=== PATIENT | male | born 1945 | race Caucasian/White ===

== ENCOUNTER → 2016-02-20 | Outpatient (CLI) | payer MEDICARE, OTHER ==
[2016-02-21 04:37] LABS: HEPATITIS C VIRUS AB <0.1 s/co ratio (0.0-0.9)
== END ==
LOC: OD 10:56
PROVIDERS: ATTEND Internal Medicine
DX: Z11.59 Encounter for screening for other viral diseases (principal)
CPT/HCPCS: 36415; 86704; 86705; 86706; 86707; 86803; 87340; 87350

== ENCOUNTER → 2016-03-15 | Outpatient (CLI) | payer MEDICARE, OTHER ==
[2016-03-15 12:10] LABS: HEMATOCRIT 39.8 % (37.9-51.0); HEMOGLOBIN 13.6 g/dL (13.5-17.0); MEAN CORPUSCULAR HEMOGLOBIN 29.7 pg (27.0-33.4); MEAN CORPUSCULAR HGB CONC 34.2 g/dL (32.0-36.0); MEAN CORPUSCULAR VOLUME 87 fl (80-97); RED BLOOD COUNT 4.58 10^6/uL (4.35-5.55); RED CELL DISTRIBUTION WIDTH 13.1 % (11.5-14.0); WHITE BLOOD COUNT 8.2 10^3/uL (4.0-10.5)
== END ==
LOC: OD 11:03
PROVIDERS: ATTEND Physician Assistant
DX: R53.83 Other fatigue (principal)
CPT/HCPCS: 36415; 85027

== ENCOUNTER → 2016-05-03 | Outpatient (CLI) | payer MEDICARE, OTHER ==
[2016-05-03 10:43] LABS: APPEARANCE,URINE CLEAR; BILIRUBIN,URINE NEGATIVE (NEGATIVE); GLUCOSE, URINE NEGATIVE (NEGATIVE); KETONES,URINE NEGATIVE (NEGATIVE); LEUKOCYTE ESTERASE,URINE NEGATIVE (NEGATIVE); NITRITE,URINE NEGATIVE (NEGATIVE); PROTEIN,URINE NEGATIVE (NEGATIVE); URINE SPECIFIC GRAVITY 1.003; UROBILINOGEN,URINE NEGATIVE mg/dL (<2.0)
[2016-05-03 10:47] LABS: HEMATOCRIT 41.2 % (37.9-51.0); HGB HCT DIFFERENCE 0.8; MEAN CORPUSCULAR HEMOGLOBIN 30.1 pg (27.0-33.4); MEAN CORPUSCULAR VOLUME 89 fl (80-97); RED BLOOD COUNT 4.66 10^6/uL (4.35-5.55); RED CELL DISTRIBUTION WIDTH 14.5 % (11.5-14.0); WHITE BLOOD COUNT 10.7 10^3/uL (4.0-10.5)
[2016-05-03 11:08] LABS: ANION GAP 13 (5-19); BLOOD UREA NITROGEN 17 mg/dL (7-20); CALCIUM 8.9 mg/dL (8.4-10.2); CARBON DIOXIDE 23 mmol/L (22-30); CHLORIDE 103 mmol/L (98-107); CREATININE RESULT 1.31 mg/dL (0.52-1.25); GLUCOSE 152 mg/dL (75-110); MAGNESIUM 1.8 mg/dL (1.6-2.3); POTASSIUM 4.6 mmol/L (3.6-5.0); SODIUM 138.5 mmol/L (137-145)
== END ==
LOC: OD 08:51
PROVIDERS: ATTEND Internal Medicine Nephrology
DX: I12.9 Hypertensive chronic kidney disease with stage 1 through stage 4 chronic kidney disease, or unspecified chronic kidney disease (principal); N18.3 Chronic kidney disease, stage 3 (moderate); E11.9 Type 2 diabetes mellitus without complications; E83.42 Hypomagnesemia
CPT/HCPCS: 36415; 80048; 81001; 83735; 85027

== ENCOUNTER → 2016-07-20 | Outpatient (CLI) | payer MEDICARE, OTHER ==
[2016-07-20 09:15] LABS: HEMOGLOBIN 13.2 g/dL (13.5-17.0); HGB HCT DIFFERENCE 0.6; MEAN CORPUSCULAR HEMOGLOBIN 29.7 pg (27.0-33.4); MEAN CORPUSCULAR HGB CONC 33.8 g/dL (32.0-36.0); MEAN CORPUSCULAR VOLUME 88 fl (80-97); RED BLOOD COUNT 4.45 10^6/uL (4.35-5.55); RED CELL DISTRIBUTION WIDTH 13.1 % (11.5-14.0); WHITE BLOOD COUNT 7.5 10^3/uL (4.0-10.5)
== END ==
LOC: OD 08:33
PROVIDERS: ATTEND Physician Assistant
DX: E29.1 Testicular hypofunction (principal); D40.0 Neoplasm of uncertain behavior of prostate; R53.83 Other fatigue
CPT/HCPCS: 36415; 84153; 84403; 85027

== ENCOUNTER → 2016-11-15 | Outpatient (CLI) | payer MEDICARE, OTHER ==
[2016-11-15 09:57] LABS: HEMATOCRIT 40.5 % (37.9-51.0); HEMOGLOBIN 13.7 g/dL (13.5-17.0); HGB HCT DIFFERENCE 0.6; MEAN CORPUSCULAR HEMOGLOBIN 29.6 pg (27.0-33.4); MEAN CORPUSCULAR HGB CONC 33.7 g/dL (32.0-36.0); MEAN CORPUSCULAR VOLUME 88 fl (80-97); RED BLOOD COUNT 4.61 10^6/uL (4.35-5.55); RED CELL DISTRIBUTION WIDTH 13.3 % (11.5-14.0); WHITE BLOOD COUNT 8.6 10^3/uL (4.0-10.5)
== END ==
LOC: OD 08:34
PROVIDERS: ATTEND Internal Medicine Nephrology
DX: E29.1 Testicular hypofunction (principal); D40.0 Neoplasm of uncertain behavior of prostate; R53.83 Other fatigue
CPT/HCPCS: 36415; 84153; 84403; 85027

== ENCOUNTER → 2016-11-29 | Outpatient (CLI) | payer MEDICARE, OTHER ==
[2016-11-29 09:06] LABS: HEMATOCRIT 39.6 % (37.9-51.0); HEMOGLOBIN 13.7 g/dL (13.5-17.0); HGB HCT DIFFERENCE 1.5; MEAN CORPUSCULAR HGB CONC 34.6 g/dL (32.0-36.0); MEAN CORPUSCULAR VOLUME 87 fl (80-97); RED BLOOD COUNT 4.57 10^6/uL (4.35-5.55); RED CELL DISTRIBUTION WIDTH 13.5 % (11.5-14.0); WHITE BLOOD COUNT 8.4 10^3/uL (4.0-10.5)
[2016-11-29 09:09] LABS: APPEARANCE,URINE SLIGHTLY-CLOUDY; BILIRUBIN,URINE NEGATIVE (NEGATIVE); GLUCOSE, URINE NEGATIVE (NEGATIVE); KETONES,URINE NEGATIVE (NEGATIVE); LEUKOCYTE ESTERASE,URINE SMALL (NEGATIVE); NITRITE,URINE NEGATIVE (NEGATIVE); PROTEIN,URINE NEGATIVE (NEGATIVE); URINE SPECIFIC GRAVITY 1.006; UROBILINOGEN,URINE NEGATIVE mg/dL (<2.0)
[2016-11-29 09:21] LABS: ANION GAP 12 (5-19); BLOOD UREA NITROGEN 18 mg/dL (7-20); CALCIUM 9.1 mg/dL (8.4-10.2); CARBON DIOXIDE 23 mmol/L (22-30); CHLORIDE 105 mmol/L (98-107); CREATININE RESULT 1.54 mg/dL (0.52-1.25); GLUCOSE 175 mg/dL (75-110); POTASSIUM 4.4 mmol/L (3.6-5.0); SODIUM 140.2 mmol/L (137-145)
[2016-11-30 12:38] LABS: CREATININE URINE 97.7 mg/dL (Not Estab.); MICROALBUMIN URINE 12.4 ug/mL (Not Estab.)
== END ==
LOC: OD 08:11
PROVIDERS: ATTEND Internal Medicine Nephrology
DX: N18.3 Chronic kidney disease, stage 3 (moderate) (principal); E11.9 Type 2 diabetes mellitus without complications; E83.42 Hypomagnesemia; E87.5 Hyperkalemia
CPT/HCPCS: 36415; 80048; 81001; 82043; 82570; 85027

== ENCOUNTER → 2017-01-03 | Outpatient (CLI) | payer MEDICARE, OTHER ==
[2017-01-03 10:20] LABS: ANION GAP 12 (5-19); BLOOD UREA NITROGEN 18 mg/dL (7-20); CALCIUM 8.9 mg/dL (8.4-10.2); CARBON DIOXIDE 26 mmol/L (22-30); CHLORIDE 105 mmol/L (98-107); GLUCOSE 119 mg/dL (75-110); MAGNESIUM 1.8 mg/dL (1.6-2.3); POTASSIUM 4.1 mmol/L (3.6-5.0); SODIUM 142.8 mmol/L (137-145)
== END ==
LOC: OD 08:25
PROVIDERS: ATTEND Internal Medicine Nephrology
DX: E11.22 Type 2 diabetes mellitus with diabetic chronic kidney disease (principal); I12.9 Hypertensive chronic kidney disease with stage 1 through stage 4 chronic kidney disease, or unspecified chronic kidney disease; N18.3 Chronic kidney disease, stage 3 (moderate); E83.42 Hypomagnesemia; E87.5 Hyperkalemia
CPT/HCPCS: 36415; 80048; 83735

== ENCOUNTER → 2017-03-14 | Outpatient (CLI) | payer MEDICARE, OTHER ==
[2017-03-14 08:51] LABS: HEMATOCRIT 42.4 % (37.9-51.0); HEMOGLOBIN 14.6 g/dL (13.5-17.0); MEAN CORPUSCULAR HEMOGLOBIN 29.7 pg (27.0-33.4); MEAN CORPUSCULAR HGB CONC 34.4 g/dL (32.0-36.0); MEAN CORPUSCULAR VOLUME 86 fl (80-97); PLATELET COUNT 185 10^3/uL (150-450); RED BLOOD COUNT 4.91 10^6/uL (4.35-5.55); RED CELL DISTRIBUTION WIDTH 13.6 % (11.5-14.0); WHITE BLOOD COUNT 8.6 10^3/uL (4.0-10.5)
== END ==
LOC: OD 07:52
PROVIDERS: ATTEND Physician Assistant
DX: D40.0 Neoplasm of uncertain behavior of prostate (principal); E29.1 Testicular hypofunction; R53.83 Other fatigue
CPT/HCPCS: 36415; 84153; 84403; 85027

== ENCOUNTER → 2017-04-04 | Outpatient (CLI) | payer MEDICARE, OTHER ==
[2017-04-04 08:40] LABS: HEMATOCRIT 38.7 % (37.9-51.0); MEAN CORPUSCULAR HEMOGLOBIN 29.1 pg (27.0-33.4); MEAN CORPUSCULAR HGB CONC 33.6 g/dL (32.0-36.0); MEAN CORPUSCULAR VOLUME 87 fl (80-97); PLATELET COUNT 186 10^3/uL (150-450); RED BLOOD COUNT 4.46 10^6/uL (4.35-5.55); RED CELL DISTRIBUTION WIDTH 14.2 % (11.5-14.0); WHITE BLOOD COUNT 11.8 10^3/uL (4.0-10.5)
[2017-04-04 09:00] LABS: ANION GAP 15 (5-19); BLOOD UREA NITROGEN 20 mg/dL (7-20); CALCIUM 9.3 mg/dL (8.4-10.2); CARBON DIOXIDE 21 mmol/L (22-30); CHLORIDE 101 mmol/L (98-107); GLUCOSE 236 mg/dL (75-110); POTASSIUM 5.3 mmol/L (3.6-5.0); SODIUM 136.8 mmol/L (137-145)
== END ==
LOC: OD 07:53
PROVIDERS: ATTEND Internal Medicine Nephrology
DX: I12.9 Hypertensive chronic kidney disease with stage 1 through stage 4 chronic kidney disease, or unspecified chronic kidney disease (principal); N18.3 Chronic kidney disease, stage 3 (moderate); E11.9 Type 2 diabetes mellitus without complications; R60.9 Edema, unspecified
CPT/HCPCS: 36415; 80048; 83735; 85027

== ENCOUNTER → 2017-07-18 | Outpatient (CLI) | payer MEDICARE, OTHER ==
[2017-07-18 08:38] LABS: MEAN CORPUSCULAR HEMOGLOBIN 29.9 pg (27.0-33.4); MEAN CORPUSCULAR HGB CONC 34.2 g/dL (32.0-36.0); MEAN CORPUSCULAR VOLUME 87 fl (80-97); PLATELET COUNT 177 10^3/uL (150-450); RED BLOOD COUNT 4.69 10^6/uL (4.35-5.55); RED CELL DISTRIBUTION WIDTH 13.4 % (11.5-14.0); WHITE BLOOD COUNT 7.7 10^3/uL (4.0-10.5)
== END ==
LOC: OD 07:31
PROVIDERS: ATTEND Physician Assistant
DX: E29.1 Testicular hypofunction (principal); D40.0 Neoplasm of uncertain behavior of prostate; R53.83 Other fatigue
CPT/HCPCS: 36415; 84153; 84403; 85027

== ENCOUNTER → 2017-10-11 | Outpatient (CLI) | payer MEDICARE, OTHER ==
[2017-10-11 08:18] LABS: HEMATOCRIT 40.6 % (37.9-51.0); HEMOGLOBIN 13.9 g/dL (13.5-17.0); MEAN CORPUSCULAR HEMOGLOBIN 29.6 pg (27.0-33.4); MEAN CORPUSCULAR HGB CONC 34.2 g/dL (32.0-36.0); MEAN CORPUSCULAR VOLUME 87 fl (80-97); PLATELET COUNT 158 10^3/uL (150-450); RED BLOOD COUNT 4.69 10^6/uL (4.35-5.55); RED CELL DISTRIBUTION WIDTH 14.1 % (11.5-14.0); WHITE BLOOD COUNT 7.6 10^3/uL (4.0-10.5)
[2017-10-11 08:22] LABS: APPEARANCE,URINE CLEAR; BILIRUBIN,URINE NEGATIVE (NEGATIVE); COLOR,URINE STRAW; GLUCOSE, URINE NEGATIVE (NEGATIVE); KETONES,URINE NEGATIVE (NEGATIVE); LEUKOCYTE ESTERASE,URINE NEGATIVE (NEGATIVE); NITRITE,URINE NEGATIVE (NEGATIVE); PROTEIN,URINE NEGATIVE (NEGATIVE); URINE SPECIFIC GRAVITY 1.004; UROBILINOGEN,URINE NEGATIVE mg/dL (<2.0)
[2017-10-11 08:54] LABS: ANION GAP 11 (5-19); BLOOD UREA NITROGEN 21 mg/dL (7-20); CALCIUM 9.2 mg/dL (8.4-10.2); CARBON DIOXIDE 25 mmol/L (22-30); CHLORIDE 105 mmol/L (98-107); GLUCOSE 213 mg/dL (75-110); POTASSIUM 4.5 mmol/L (3.6-5.0); SODIUM 140.6 mmol/L (137-145)
== END ==
LOC: OD 07:42
PROVIDERS: ATTEND Internal Medicine Nephrology
DX: N18.3 Chronic kidney disease, stage 3 (moderate) (principal); E83.42 Hypomagnesemia; E87.5 Hyperkalemia; E11.22 Type 2 diabetes mellitus with diabetic chronic kidney disease
CPT/HCPCS: 36415; 80048; 81001; 85027

== ENCOUNTER 2017-10-13 11:06 | Observation (INO) | payer MEDICARE, OTHER ==
[2017-10-13] MEDS ORDERED: ASPIRIN 81 MG TABLET, CHEWABLE PO ONE (12:25)
--- NOTE | 2017-10-13 12:43 | EKG REPORT ---
SEVERITY:- NORMAL ECG - SINUS RHYTHM : Confirmed by: Ryan Ansari MD 13-Oct-2017 12:43:08
[2017-10-13 13:17] LABS: ABSOLUTE EOSINOPHILS # (AUTO) 0.2 10^3/uL (0.0-0.6); ABSOLUTE LYMPHOCYTES (AUTO) 1.4 10^3/uL (0.5-4.7); ABSOLUTE MONOCYTES (AUTO) 0.7 10^3/uL (0.1-1.4); ABSOLUTE NEUT (AUTO) 7.7 10^3/uL (1.7-8.2); BASOPHILS % (AUTO) 0.3 % (0-2); EOSINOPHILS % (AUTO) 1.7 % (0-6); HEMOGLOBIN 14.6 g/dL (13.5-17.0); MEAN CORPUSCULAR HEMOGLOBIN 29.6 pg (27.0-33.4); MEAN CORPUSCULAR VOLUME 87 fl (80-97); MONOCYTES % (AUTO) 6.8 % (3-13); PLATELET COUNT 185 10^3/uL (150-450); RED BLOOD COUNT 4.93 10^6/uL (4.35-5.55); SEGMENTED NEUTROPHILS % (AUTO) 77.2 % (42-78); TOTAL CELLS COUNTED % (AUTO) 100 %; WHITE BLOOD COUNT 9.9 10^3/uL (4.0-10.5)
--- NOTE | 2017-10-13 13:19 | RADIOLOGY REPORT (SQ) ---
EXAM DESCRIPTION: CHEST SINGLE VIEW COMPLETED DATE/TIME: 10/13/2017 12:57 pm REASON FOR STUDY: cp COMPARISON: 01/06/2016 EXAM PARAMETERS: NUMBER OF VIEWS: One view. TECHNIQUE: Single frontal radiographic view of the chest acquired. RADIATION DOSE: NA LIMITATIONS: None. FINDINGS: LUNGS AND PLEURA: Mild hyperexpansion of the lungs. No infiltrate or effusion. No mass. MEDIASTINUM AND HILAR STRUCTURES: No masses. Contour normal. HEART AND VASCULAR STRUCTURES: Heart normal in size. Normal vasculature. BONES: No acute findings. HARDWARE: None in the chest. OTHER: No other significant finding. IMPRESSION: Mild chronic lung changes with no acute cardiopulmonary disease. TECHNICAL DOCUMENTATION: JOB ID: [id number] [employer]- All Rights Reserved Reading location - IP/workstation name: [email or web address]
[2017-10-13 13:48] LABS: ALANINE AMINOTRANSFERASE 26 U/L (21-72); ALBUMIN 4.5 g/dL (3.5-5.0); ALKALINE PHOSPHATASE 83 U/L (38-126); ANION GAP 9 (5-19); ASPARTATE AMINO TRANSFERASE 24 U/L (17-59); BILIRUBIN,DIRECT 0.3 mg/dL (0.0-0.4); BILIRUBIN,TOTAL 0.7 mg/dL (0.2-1.3); BLOOD UREA NITROGEN 14 mg/dL (7-20); CALCIUM 9.8 mg/dL (8.4-10.2); CARBON DIOXIDE 26 mmol/L (22-30); CHLORIDE 105 mmol/L (98-107); CREATINE KINASE 62 U/L (55-170); GLUCOSE 131 mg/dL (75-110); POTASSIUM 4.6 mmol/L (3.6-5.0); SODIUM 140.1 mmol/L (137-145); TOTAL PROTEIN 7.8 g/dL (6.3-8.2)
--- NOTE | 2017-10-13 13:51 | ER Document Report ---
ED Cardiac - General Chief Complaint: Breathing Difficulty Stated Complaint: CHEST PRESSURE, SHORTNESS OF BREATH Time Seen by Provider: 10/13/17 12:41 Information source: Patient Notes: Patient is a 72-year-old male with past medical history of being prediabetic, high cholesterol, low thyroid, osteoarthritis, and chronic kidney disease on Lasix who presents today stating that yesterday while attempting to walk he had some shortness of breath and chest discomfort. He states he only has the shortness of breath and discomfort with ambulating. He denies a history of this prior to yesterday. Patient denies any runny nose, congestion, fevers, calf pain or leg swelling above baseline. No recent trips or travel. TRAVEL OUTSIDE OF THE [place] IN LAST 30 DAYS: No - HPI Patient complains to provider of: Other - See above Chest pain location: Substernal Quality of pain: Other - See above Chest pain radiation location: None Severity now: None Severity at worst: Mild Pain level currently: Denies Chest pain precipitating factors: Physical Exertion Associated symptoms: Other - See above Exacerbated by: Denies Relieved by: Nothing Similar symptoms previously: No Recently seen / treated by doctor: No - Related Data Allergies/Adverse Reactions: atorvastatin calcium [From Lipitor] Allergy (Verified 10/13/17 11:08) cephradine [From Velosef] Allergy (Verified 10/13/17 11:08) cerivastatin sodium [From Baycol] Allergy (Verified 10/13/17 11:08) chloramphenicol [From Chloromycetin] Allergy (Verified 10/13/17 11:08) chloramphenicol sod succ [From Chloromycetin] Allergy (Verified 10/13/17 11:08) cholera vaccine [Cholera Vaccine] Allergy (Verified 10/13/17 11:08) colestipol HCl [From Colestid] Allergy (Verified 10/13/17 11:08) doxycycline hyclate [From Vibramycin] Allergy (Verified 10/13/17 11:08) erythromycin base [Erythromycin Base] Allergy (Verified 10/13/17 11:08) ezetimibe [From Zetia] Allergy (Verified 10/13/17 11:08) fenofibrate,micronized [From Tricor] Allergy (Verified 10/13/17 11:08) lisinopril [Lisinopril] Allergy (Verified 10/13/17 11:08) nifedipine [From Adalat] Allergy (Verified 10/13/17 11:08) Penicillins Allergy (Verified 10/13/17 11:08) simvastatin [From Zocor] Allergy (Verified 10/13/17 11:08) sulfamethoxazole [From Septra] Allergy (Verified 10/13/17 11:08) terazosin [Terazosin] Allergy (Verified 10/13/17 11:08) trimethoprim [From Septra] Allergy (Verified 10/13/17 11:08) contrast IVP Dye Allergy (Uncoded 10/13/17 11:08) Past Medical History - General Information source: Patient - Social History Smoking Status: Former Smoker Cigarette use (# per day): No Chew tobacco use (# tins/day): No Smoking Education Provided: No Frequency of alcohol use: None Drug Abuse: None Family History: Reviewed & Not Pertinent Patient has suicidal ideation: No Patient has homicidal ideation: No - Past Medical History Cardiac Medical History: Reports: Hx Hypercholesterolemia, Hx Hypertension Denies: Hx Coronary Artery Disease, Hx Pulmonary Embolism Endocrine Medical History: Reports: Hx Diabetes Mellitus Type 2, Hx Hypothyroidism Renal/ Medical History: Denies: Hx Peritoneal Dialysis GI Medical History: Reports: Hx Gastroesophageal Reflux Disease Musculoskeletal Medical History: Reports Hx Arthritis Psychiatric Medical History: Denies: Hx Depression Past Surgical History: Reports: Hx Genitourinary Surgery - bladder reconstruction - Immunizations Hx Pneumococcal Vaccination: 02/08/08 Review of Systems - Review of Systems Constitutional: denies: Fever EENT: denies: Eye discharge, Nose discharge Respiratory: Short of breath. denies: Cough, Hurts to breathe, Hemoptysis, Wheezing Gastrointestinal: denies: Vomiting Genitourinary: denies: Dysuria Musculoskeletal: denies: Leg swelling Skin: Other - no hives. denies: Rash Neurological/Psychological: Other - no slurred speech -: Yes All other systems reviewed and negative Physical Exam - Vital signs Vitals: Temp Pulse Resp BP Pulse Ox 97.6 F 68 20 184/75 H 96 10/13/17 11:13 10/13/17 11:13 10/13/17 11:13 10/13/17 11:13 10/13/17 11:13 Notes: Reviewed vital signs and nursing note as charted by RN. CONSTITUTIONAL: Alert and oriented and responds appropriately to questions. Well -appearing; well-nourished HEAD: Normocephalic; atraumatic CARD: Regular rate and rhythm; no murmurs; symmetric distal pulses RESP: Normal chest excursion without splinting or tachypnea; breath sounds clear and equal bilaterally ABD/GI: Normal bowel sounds; non-distended; soft, non-tender BACK: The back appears normal and is non-tender to palpation, there is no CVA tenderness EXT: Normal ROM in all joints; non-tender to palpation, patient has 1+ bilateral pitting edema to the shins no calf pain or leg swelling noted SKIN: Normal color for age and race; warm; dry; no acute lesions noted NEURO: Moves all extremities equally; Motor and sensory function intact PSYCH: The patient's mood and manner are appropriate. Grooming and personal hygiene are appropriate. Course - Re-evaluation Re-evalutation: Given the above history and physical examination, I currently have a very low pretest probability for pulmonary embolism and aortic dissection. 10/13/17 13:50 EKG shows heart of 70, normal sinus rhythm, normal axis, no ST elevation or depression. Labs and initial troponin as recorded. Patient denies any pain at this time. X-ray of the chest shows minimal cardiomegaly with no obvious infiltrates or pleural effusions. Patient is still chest pain-free. Given the above history and physical I will have a repeat 3 hour troponin to decide whether the patient can be kept here or transferred for further cardiac evaluation. Aspirin has been already provided upon arrival. 10/13/17 16:32 Second set of cardiac enzymes has been drawn. Derek Amaya MD is currently out of town. Dr. Porras is covering for him. He states when Derek Amaya MD is out of town he would like the hospitalist to admit. 10/13/17 17:09 Patient still has no chest pain. Repeat troponin is essentially unchanged. I called and spoke directly to the ground wood supervisor Dr. Gayle. I have explained the full history and physical as well as the troponin levels. He is happy to consult on this patient with possible stress test tomorrow. Patient will be admitted to the hospitalist. - Vital Signs Vital signs: Temp Pulse Resp BP Pulse Ox 97.6 F 68 12 168/90 H 95 10/13/17 11:13 10/13/17 11:13 10/13/17 16:01 10/13/17 16:00 10/13/17 16:01 - Laboratory Result Diagrams: 10/13/17 12:57 10/13/17 12:57 Laboratory results interpreted by me: 10/13/17 12:57 Creatinine 1.45 H Est GFR ( Amer) 58 L Est GFR (Non-Af Amer) 48 L Glucose 131 H Discharge - Discharge Clinical Impression: Chest pain Qualifiers: Chest pain type: unspecified Qualified Code(s): R07.9 - Chest pain, unspecified Condition: Fair Disposition: ADMITTED OBSERVATION Admitting Provider: Hospitalist Unit Admitted: Telemetry Referrals: DEREK AMAYA MD [Primary Care Provider] - Follow up as needed
[2017-10-13 13:59] LABS: CREATINE KINASE MB 1.49 ng/mL (<4.55)
[2017-10-13 14:08] LABS: TROPONIN I 0.12 ng/mL
[2017-10-13] MEDS ORDERED: ACETAMINOPHEN 325 MG TABLET PO PRN (17:22)
[2017-10-13] MEDS ORDERED: ONDANSETRON 4 MG TAB.RAPDIS PO PRN (17:22)
[2017-10-13] MEDS ORDERED: DEXTROSE 40% GEL 15 GM TUBE PO PRN ×2 (17:22)
[2017-10-13] MEDS ORDERED: PROMETHAZINE HCL INJ 25 MG/1 ML VIAL IV PRN (17:22)
[2017-10-13] MEDS ORDERED: ZOLPIDEM TARTRATE 5 MG TABLET PO PRN (17:22)
[2017-10-13] MEDS ORDERED: MAG HYDROX/AL HYDROX/SIMETH SUSP 30 ML UDCUP PO PRN (17:22)
[2017-10-13] MEDS ORDERED: DEXTROSE 50%-WATER 25 GM/50 ML DISP.SYRIN IV PRN ×2 (17:22)
[2017-10-13] MEDS ORDERED: MAGNESIUM HYDROXIDE SUSP 30 ML UDCUP PO PRN (17:22)
[2017-10-13] MEDS ORDERED: GLUCAGON,HUMAN RECOMB 1 MG INJ SUBCUT PRN (17:22)
[2017-10-13] MEDS: DOCUSATE SODIUM 100 MG CAPSULE PO SCH (18:29)
[2017-10-13] MEDS ORDERED: ALPROSTADIL 20 MCG IM PRN (19:49)
[2017-10-13] MEDS ORDERED: KETOCONAZOLE 2% SHAMPOO 120 ML BOTTLE TOP PRN (19:49)
[2017-10-13] MEDS ORDERED: METHOCARBAMOL 500 MG TABLET PO PRN (19:49)
[2017-10-13] MEDS ORDERED: CARBOXYMETHYLCELLULOSE SODIUM OU PRN (19:49)
[2017-10-13] MEDS ORDERED: (PENDING PHARMACY ID) (Diclofenac Sodium [Voltaren] 4 GM) TP PRN (19:49)
--- NOTE | 2017-10-13 19:49 | PDOC H&P ---
History of Present Illness Admission Date/PCP: 10/13/17 17:10 DEREK AMAYA MD Patient complains of: Chest pain History of Present Illness: MUNIR SUMMERS is a 72 year old male who presented to the emergency room with a history of chest pain beginning on the afternoon of the day prior to his admission. He states that he was walking from [facility] to his car which was parked a fair distance away when he developed severe dyspnea, profuse diaphoresis, and a severe, crushing pressure type, anterior, substernal, chest pain without radiation. The pain was constant for a couple of minutes and and then subsided over approximately 10-15 minutes with rest. He developed a similar episode on the morning of admission when he had taken out some trash from the house to the curb. This episode again involved severe dyspnea and severe chest pressure but less prominent diaphoresis. The pain was again nonradiating. He denies prior episodes and has identified rest is not ameliorating factor and exertion as a exacerbating factor for his pain. He denies any recent nausea, vomiting or diarrhea and has had no fever or chills. He additionally denies palpitations, cough, sputum production, hemoptysis, rash and syncope. His past medical history is positive for hyperlipidemia, hypertension, hypothyroidism, osteoarthritis, chronic renal failure and prediabetes. He is being admitted for cardiology evaluation. Dr. Gayle has been consulted. Past Medical History Cardiac Medical History: Reports: Hyperlipidema, Hypertension Denies: Atrial Fibrillation, Congestive Heart Failure, Coronary Artery Disease, DVT, Myocardial Infarction, Peripheral Vascular Disease, Pulmonary Embolism, Heart Murmur Pulmonary Medical History: Reports: None EENT Medical History: Reports: None Neurological Medical History: Reports: None Endocrine Medical History: Reports: Diabetes Mellitus Type 2 - Prediabetes, Hypothyroidism Renal/ Medical History: Reports: Chronic Kidney Disease Malignancy Medical History: Reports: None GI Medical History: Reports: Gastroesophageal Reflux Disease Musculoskeltal Medical History: Reports: Arthritis - Osteoarthritis Skin Medical History: Reports: None Psychiatric Medical History: Reports: None Traumatic Medical History: Reports: None Hematology: Reports: None Infectious Medical History: Reports: None Past Surgical History Past Surgical History: Reports: None Social History Smoking Status: Former Smoker Frequency of Alcohol Use: None Hx Recreational Drug Use: No Hx Prescription Drug Abuse: No Family History Family History: Reviewed & Not Pertinent Parental Family History Reviewed: Yes Children Family History Reviewed: No Sibling(s) Family History Reviewed.: Yes Medication/Allergy Home Medications: Alfuzosin HCl [Uroxatral SR 10 mg Tablet] 1 tab.sr PO DAILY 12/01/12 Aspirin [Aspirin 325 mg Tablet] 325 mg PO DAILY 12/01/12 Atenolol [Tenormin 50 mg Tablet] 50 mg PO DAILY 12/01/12 Carboxymethylcellulose Sodium [Refresh Tears Drops] 1 dropperful OP PRN Cetirizine HCl [Aller-Irasema] 1 tab PO DAILY 12/01/12 Ciclopirox/Skin Cleanser No.28 [Ciclodan 0.77% Cream Kit] PRN 12/01/12 Clobetasol Propionate/Emoll [Clobetasol Emollient 0.05% Crm] PRN 12/01/12 Colesevelam HCl [Welchol 625 mg Tablet] 625 mg PO DAILY 12/01/12 Cyanocobalamin (Vitamin B-12) [Vitamin B-12] 500 mcg PO DAILY 12/01/12 Finasteride [Proscar 5 mg Tablet] 5 mg PO DAILY 12/01/12 Ketoconazole [Nizoral 2% Shampoo 120 ml Bottle] PRN 12/01/12 Levothyroxine Sodium [Synthroid] 125 mcg PO DAILY 12/01/12 Rabeprazole Sodium [Aciphex] 20 mg PO DAILY 12/01/12 Saw [place] 450 mg PO DAILY 12/01/12 Alprostadil [Edex] 20 mcg IM PRN PRN 10/31/15 Diclofenac Sodium [Voltaren] 4 gm TP QID 10/31/15 Furosemide [Lasix] 40 mg PO DAILY 10/31/15 Glimepiride [Amaryl] 2 mg PO DAILY 10/31/15 Magnesium Oxide 400 mg PO TID 10/31/15 Methocarbamol 500 mg PO QID 10/31/15 Mineral Oil/Petrolatum,White [Absorbase Ointment] 1 applic TP ASDIR PRN [place]-3 Acid Ethyl Esters [Lovaza 1 gm Capsule] 2 gm PO BID 10/31/15 Telmisartan [Micardis 80 mg Tablet] 1 tab PO DAILY 11/01/15 Cholecalciferol (Vitamin D3) [Vitamin D3] 5,000 unit PO DAILY 10/13/17 Ergocalciferol (Vitamin D2) [Drisdol 50,000 unit (1.25MG) Capsule] 50,000 unit PO WE@1000 10/13/17 Furosemide [Lasix 20 mg Tablet] 20 mg PO DAILY@1400 10/13/17 Meloxicam [Mobic] 15 mg PO DAILYP PRN 10/13/17 Olopatadine HCl [Pataday] 1 drop OU DAILYP PRN 10/13/17 Allergies/Adverse Reactions: atorvastatin calcium [From Lipitor] Allergy (Verified 10/13/17 11:08) cephradine [From Velosef] Allergy (Verified 10/13/17 11:08) cerivastatin sodium [From Baycol] Allergy (Verified 10/13/17 11:08) chloramphenicol [From Chloromycetin] Allergy (Verified 10/13/17 11:08) chloramphenicol sod succ [From Chloromycetin] Allergy (Verified 10/13/17 11:08) cholera vaccine [Cholera Vaccine] Allergy (Verified 10/13/17 11:08) colestipol HCl [From Colestid] Allergy (Verified 10/13/17 11:08) doxycycline hyclate [From Vibramycin] Allergy (Verified 10/13/17 11:08) erythromycin base [Erythromycin Base] Allergy (Verified 10/13/17 11:08) ezetimibe [From Zetia] Allergy (Verified 10/13/17 11:08) fenofibrate,micronized [From Tricor] Allergy (Verified 10/13/17 11:08) lisinopril [Lisinopril] Allergy (Verified 10/13/17 11:08) nifedipine [From Adalat] Allergy (Verified 10/13/17 11:08) Penicillins Allergy (Verified 10/13/17 11:08) simvastatin [From Zocor] Allergy (Verified 10/13/17 11:08) sulfamethoxazole [From Septra] Allergy (Verified 10/13/17 11:08) terazosin [Terazosin] Allergy (Verified 10/13/17 11:08) trimethoprim [From Septra] Allergy (Verified 10/13/17 11:08) contrast IVP Dye Allergy (Uncoded 10/13/17 11:08) Review of Systems Constitutional: ABSENT: chills, fever(s) Eyes: ABSENT: visual disturbances, other - I pain Ears: ABSENT: hearing changes - Ear pain, other Nose, Mouth, and Throat: ABSENT: sore throat, vertigo Cardiovascular: PRESENT: chest pain, dyspnea on exertion. ABSENT: edema, orthropnea, palpitations Respiratory: ABSENT: cough, dyspnea, hemoptysis, sputum Gastrointestinal: ABSENT: abdominal pain, constipation, diarrhea, nausea, vomiting Genitourinary: ABSENT: dysuria, hematuria Musculoskeletal: PRESENT: other - Multiple joint pains. ABSENT: deformity, joint swelling Integumentary: ABSENT: pruritus, rash Neurological: ABSENT: abnormal speech, confusion, focal weakness, memory loss Psychiatric: ABSENT: anxiety, depression Endocrine: ABSENT: cold intolerance, heat intolerance Hematologic/Lymphatic: ABSENT: easy bleeding, easy bruising Physical Exam Vital Signs: Temp Pulse Resp BP Pulse Ox 97.6 F 68 13 162/74 H 98 10/13/17 11:13 10/13/17 11:13 10/13/17 18:01 10/13/17 18:00 10/13/17 18:01 Intake & Output 10/12/17 10/13/17 10/14/17 06:59 06:59 06:59 Intake Total 300 Output Total 500 Balance -200 General appearance: PRESENT: no acute distress, cooperative, obese Head exam: PRESENT: atraumatic, normocephalic Eye exam: PRESENT: conjunctiva pink. ABSENT: nystagmus, scleral icterus Ear exam: PRESENT: normal external ear exam. ABSENT: bleeding, drainage Mouth exam: PRESENT: moist, neck supple, tongue midline Neck exam: ABSENT: JVD, thyromegaly, tracheal deviation Respiratory exam: PRESENT: clear to auscultation shahla, symmetrical, unlabored Cardiovascular exam: PRESENT: RRR. ABSENT: clicks, diastolic murmur, gallop, rubs, systolic murmur Pulses: PRESENT: normal carotid pulses, normal radial pulses, normal dorsalis pedis pul Vascular exam: PRESENT: normal capillary refill. ABSENT: pallor GI/Abdominal exam: PRESENT: normal bowel sounds, soft. ABSENT: distended, tenderness Rectal exam: PRESENT: deferred Extremities exam: ABSENT: joint swelling, pedal edema Musculoskeletal exam: ABSENT: deformity, dislocation Neurological exam: PRESENT: alert, awake, oriented to person, oriented to place , oriented to time, oriented to situation, CN II-XII grossly intact. ABSENT: motor sensory deficit Psychiatric exam: PRESENT: appropriate affect, normal mood Skin exam: ABSENT: jaundice, rash, urticaria Results Impressions: Chest X-Ray 10/13/17 12:25 IMPRESSION: Mild chronic lung changes with no acute cardiopulmonary disease. Assessment & Plan - Diagnosis (1) Chest pain Qualifiers: Chest pain type: unspecified Qualified Code(s): R07.9 - Chest pain, unspecified Is this a current diagnosis for this admission?: Yes Plan: Cardiology consultation and stress testing per cardiology. (2) COPD (chronic obstructive pulmonary disease) Is this a current diagnosis for this admission?: Yes Plan: Continue home pulmonary medications and treatments. Monitor pulmonary status throughout hospital course. (3) Chronic kidney disease, stage III (moderate) Is this a current diagnosis for this admission?: Yes Plan: Monitor renal status throughout hospital course. (4) Diabetes mellitus Qualifiers: Diabetes mellitus type: type 2 Diabetes mellitus skilled nursing insulin use: without race steward use Diabetes mellitus complication status: with kidney complications Diabetes mellitus complication detail: with chronic kidney disease Chronic kidney disease stage: stage 3 (moderate) Qualified Code(s): E11.22 - Type 2 diabetes mellitus with diabetic chronic kidney disease Is this a current diagnosis for this admission?: Yes Plan: Monitor blood sugar status with before meals and at bedtime blood sugars throughout hospital course. Check hemoglobin A1c. (5) GERD (gastroesophageal reflux disease) Is this a current diagnosis for this admission?: Yes Plan: Continue home medications throughout hospital course. Observe for complications or worsening of this disease process. (6) Hypertension Is this a current diagnosis for this admission?: Yes Plan: Continue home antihypertensive regimen. Monitor blood pressure throughout hospital course. (7) Hypothyroid Is this a current diagnosis for this admission?: Yes Plan: Continue home thyroid replacement. Monitor thyroid lab work during hospital course. - Time Time Spent: Greater than 70 Minutes Medications reviewed and adjusted accordingly: Yes Anticipated discharge: Home Within: within 72 hours
[2017-10-13] MEDS ORDERED: CARBOXYMETHYLCELLULOSE SOD 0.5% 0.4 ML DROPERETTE OU PRN (21:53)
[2017-10-13] MEDS ORDERED: OLOPATADINE HCL 0.1% OPH SOLN 5 ML OU PRN (21:58)
[2017-10-13] MEDS ORDERED: (PENDING PHARMACY ID) (Clobetasol Propionate/Emoll [Clobetasol Emollient 0.05% Crm] 1 APPL TOP SCH (22:00)
[2017-10-13] MEDS ORDERED: (PENDING PHARMACY ID) (Cyanocobalamin (Vitamin B-12) [Vitamin B-12] 500 MCG) PO SCH (22:00)
[2017-10-13] MEDS ORDERED: ALFUZOSIN HCL 10 MG PO SCH (22:00)
[2017-10-13] MEDS ORDERED: CLOPIDOGREL BISULFATE 300 MG TABLET PO ONE (22:15)
[2017-10-13] MEDS: ASPIRIN 325 MG TABLET PO SCH (22:45)
[2017-10-13] MEDS: MAGNESIUM OXIDE 400 MG TABLET PO SCH (22:45)
[2017-10-13] MEDS: FAMOTIDINE 20 MG TABLET PO SCH (22:46)
[2017-10-13] MEDS: ATENOLOL 50 MG TABLET PO SCH (22:46)
[2017-10-13] MEDS: HEPARIN SOD (PORCINE) 5,000 UNIT/ML 1 ML SYRINGE SUBCUT SCH (22:47)
[2017-10-13] MEDS: MINERAL OIL/PETROLATUM,WHITE CREAM 114 GM TP SCH (22:48)
[2017-10-13] MEDS ORDERED: AMLODIPINE BESYLATE 10 MG TABLET PO ONE (23:20)
[2017-10-13] MEDS ORDERED: CYANOCOBALAMIN (VITAMIN B-12) 1,000 MCG TABLET PO ONE (23:30)
[2017-10-13] MEDS ORDERED: TAMSULOSIN HCL 0.4 MG CAP.SR.24H PO ONE (23:30)
[2017-10-13 23:52] LABS: CREATINE KINASE MB 1.24 ng/mL (<4.55); TROPONIN I 0.089 ng/mL
[2017-10-14] MEDS ORDERED: HYDRALAZINE HCL INJ/PF 20 MG/1 ML SDV IV PRN (03:33)
[2017-10-14 05:14] LABS: HEMATOCRIT 39.2 % (37.9-51.0); HEMOGLOBIN 13.4 g/dL (13.5-17.0); MEAN CORPUSCULAR HEMOGLOBIN 29.6 pg (27.0-33.4); MEAN CORPUSCULAR HGB CONC 34.2 g/dL (32.0-36.0); MEAN CORPUSCULAR VOLUME 87 fl (80-97); PLATELET COUNT 151 10^3/uL (150-450); RED BLOOD COUNT 4.53 10^6/uL (4.35-5.55)
[2017-10-14] MEDS: MAGNESIUM OXIDE 400 MG TABLET PO SCH ×3 (05:34→21:50)
[2017-10-14] MEDS: LEVOTHYROXINE SODIUM 0.1 MG TABLET PO SCH (05:34)
[2017-10-14] MEDS: LEVOTHYROXINE SODIUM 0.025 MG TABLET PO SCH (05:34)
[2017-10-14] MEDS: LANSOPRAZOLE 30 MG TAB.RAP.DR PO SCH (05:35)
[2017-10-14] MEDS: HEPARIN SOD (PORCINE) 5,000 UNIT/ML 1 ML SYRINGE SUBCUT SCH ×3 (05:35→21:51)
[2017-10-14 05:37] LABS: ANION GAP 6 (5-19); BLOOD UREA NITROGEN 17 mg/dL (7-20); CALCIUM 8.9 mg/dL (8.4-10.2); CARBON DIOXIDE 28 mmol/L (22-30); CHLORIDE 106 mmol/L (98-107); CREATINE KINASE 48 U/L (55-170); GLUCOSE 105 mg/dL (75-110); POTASSIUM 5.1 mmol/L (3.6-5.0); SODIUM 139.8 mmol/L (137-145)
[2017-10-14 05:49] LABS: CREATINE KINASE MB 1.24 ng/mL (<4.55)
[2017-10-14 05:57] LABS: TROPONIN I 0.091 ng/mL
[2017-10-14] MEDS ORDERED: (PENDING PHARMACY ID) (Levothyroxine Sodium [Synthroid] 125 MCG) PO SCH (06:00)
--- NOTE | 2017-10-14 07:31 | EKG REPORT ---
SEVERITY:- NORMAL ECG - SINUS RHYTHM : Confirmed by: Ryan Ansari MD 14-Oct-2017 07:30:31
[2017-10-14] MEDS: DOCUSATE SODIUM 100 MG CAPSULE PO SCH ×2 (09:56→17:00)
[2017-10-14] MEDS: CETIRIZINE 10 MG TABLET PO SCH (09:57)
[2017-10-14] MEDS: GLIMEPIRIDE 1 MG TABLET PO SCH (09:57)
[2017-10-14] MEDS: CLOPIDOGREL BISULFATE 75 MG TABLET PO SCH (09:57)
[2017-10-14] MEDS: CHOLECALCIFEROL (D3) 1,000 UNIT TABLET PO SCH (09:58)
[2017-10-14] MEDS: OMEGA-3 ACID ETHYL ESTERS 1 GM CAPSULE PO SCH ×2 (09:58→17:00)
[2017-10-14] MEDS: FAMOTIDINE 20 MG TABLET PO SCH ×2 (09:58→21:47)
[2017-10-14] MEDS: LOSARTAN POTASSIUM 50 MG TABLET PO SCH (09:59)
[2017-10-14] MEDS: MINERAL OIL/PETROLATUM,WHITE CREAM 114 GM TP SCH ×4 (10:00→21:51)
[2017-10-14] MEDS ORDERED: (PENDING PHARMACY ID) (Telmisartan [Micardis 80 Mg Tablet] 80 MG) PO SCH (10:00)
[2017-10-14] MEDS ORDERED: (PENDING PHARMACY ID) (Cholecalciferol (Vitamin D3) [Vitamin D3] 5,000 UNIT) PO SCH (10:00)
[2017-10-14] MEDS ORDERED: (PENDING PHARMACY ID) (Rabeprazole Sodium [Aciphex] 20 MG) PO SCH (10:00)
[2017-10-14] MEDS ORDERED: [UNRECOGNIZED DRUG - OTHER] TOP SCH (10:00)
[2017-10-14] MEDS ORDERED: SAW PALMETTO 450 MG PO SCH (10:00)
[2017-10-14] MEDS: COLESEVELAM HCL 625 MG TABLET PO SCH ×2 (10:00→16:57)
--- NOTE | 2017-10-14 14:50 | XCELERA REPORT ---
[address] [address] Transthoracic Echocardiogram Report Name: MUNIR SUMMERS Age: 72 yrs Gender: Male : 1945 Patient Status: Inpatient Patient Location: [address] [place] [address] Study Date: 10/14/2017 11:06 AM Height: 68 in Weight: 236 lb BSA: 2.2 m2 Procedure: A complete two-dimensional transthoracic echocardiogram was performed (2D, M-mode, spectral and color flow Doppler). The study was technically adequate with some images being suboptimal in quality. Reason For Study: chest pain Ordering Physician: BALBINA MUNOZ Performed By: Jeremiah Llanos Interpretation Summary The left ventricular ejection fraction is normal. There is mild concentric left ventricular hypertrophy. The left ventricle is grossly normal size. Doppler measurements suggest pseudonormalized left ventricular relaxation, which is associated with grade II/IV or mild to moderate diastolic dysfunction Wall motion cannot be accurately commented on, but no definite regional wall motion abnormalities noted. The right ventricular systolic function is normal. The left atrial size is normal. The right atrium is normal in size There is a trace amount of mitral regurgitation There is no mitral valve stenosis. There is no aortic valve stenosis No aortic regurgitation is present. There is a trace to mild amount of tricuspid regurgitation Right ventricular systolic pressure is estimated to be elevated at 50-60mmHg. There is moderate to severe pulmonary hypertension by echo The aortic root is not well visualized but is probably normal size. The inferior vena cava was not well visualized There is no pericardial effusion. MMode/2D Measurements & Calculations RVDd: 4.2 cm LVIDd: 4.9 cm FS: 39.1 % Ao root diam: 3.3 cm IVSd: 0.89 cm LVIDs: 3.0 cm EDV(Teich): 110.4 ml Ao root area: 8.4 cm2 LVPWd: 0.96 cm ESV(Teich): 33.7 ml LA dimension: 3.1 cm EF(Teich): 69.5 % LVOT diam: 2.1 cm LVOT area: 3.5 cm2 Doppler Measurements & Calculations MV E max valeria: MV P1/2t max valeria: Ao V2 max: LV V1 max P.0 cm/sec 67.3 cm/sec 125.7 cm/sec 3.6 mmHg MV A max valeria: MV P1/2t: 90.9 msec Ao max P.3 mmHg LV V1 max: 70.6 cm/sec MVA(P1/2t): 2.4 cm2 KIMBERLY(V,D): 2.7 cm2 95.2 cm/sec MV E/A: 0.83 MV dec slope: 216.9 cm/sec2 MV dec time: 0.31 sec PA V2 max: TR max valeria: MV P1/2t-pr_phl: 69.6 cm/sec 347.5 cm/sec 90.9 msec PA max PG: TR max P.3 mmHg 1.9 mmHg Left Ventricle The left ventricle is grossly normal size. There is mild concentric left ventricular hypertrophy. The left ventricular ejection fraction is normal. Doppler measurements suggest pseudonormalized left ventricular relaxation, which is associated with grade II/IV or mild to moderate diastolic dysfunction. Wall motion cannot be accurately commented on, but no definite regional wall motion abnormalities noted. Right Ventricle The right ventricle is grossly normal size. There is normal right ventricular wall thickness. The right ventricular systolic function is normal. Atria The right atrium is normal in size. The left atrial size is normal. Interarterial septum not well visualized and not well dopplered. Cannot comment on ASD/PFO presence. Mitral Valve The mitral valve is grossly normal. There is no mitral valve stenosis. There is a trace amount of mitral regurgitation. Aortic Valve The aortic valve is grossly normal. There is no aortic valve stenosis. No aortic regurgitation is present. Tricuspid Valve The tricuspid valve is not well visualized, but is grossly normal. There is no tricuspid stenosis. There is a trace to mild amount of tricuspid regurgitation. Right ventricular systolic pressure is estimated to be elevated at 50-60mmHg. There is moderate to severe pulmonary hypertension by echo. Pulmonic Valve The pulmonic valve is not well visualized. Great Vessels The aortic root is not well visualized but is probably normal size. The inferior vena cava was not well visualized. Effusions There is no pericardial effusion. : BALBINA MUNOZ > Balbina Munoz
[2017-10-14] MEDS: FUROSEMIDE 20 MG TABLET PO SCH (15:58)
[2017-10-14] MEDS: FINASTERIDE 5 MG TABLET PO SCH (17:02)
[2017-10-14] MEDS: ASPIRIN 325 MG TABLET PO SCH (21:47)
[2017-10-14] MEDS: ATENOLOL 50 MG TABLET PO SCH (21:50)
[2017-10-14] MEDS ORDERED: AMLODIPINE BESYLATE 10 MG TABLET PO SCH (22:00)
[2017-10-14] MEDS ORDERED: TAMSULOSIN HCL 0.4 MG CAP.SR.24H PO SCH (22:00)
[2017-10-14] MEDS ORDERED: CYANOCOBALAMIN (VITAMIN B-12) 1,000 MCG TABLET PO SCH (22:00)
--- NOTE | 2017-10-14 23:08 | PDOC CONSULTATION ---
Consultation Consult Date: 10/13/17 Attending physician:: DAJIA ORTIZ Consult reason:: Chest pain History of Present Illness Admission Date/PCP: 10/13/17 17:10 DEREK AMAYA MD Patient complains of: Chest pain History of Present Illness: MUNIR SUMMERS is a 72 year old male who presented to the emergency room with a history of chest pain beginning on the afternoon of the day prior to his admission. He states that he was walking from [facility] to his car which was parked a fair distance away when he developed severe dyspnea, profuse diaphoresis, and a severe, crushing pressure type, anterior, substernal, chest pain without radiation. The pain was constant for a couple of minutes and and then subsided over approximately 10-15 minutes with rest. He developed a similar episode on the morning of admission when he had taken out some trash from the house to the curb. This episode again involved severe dyspnea and severe chest pressure but less prominent diaphoresis. The pain was again nonradiating. He denies prior episodes and has identified rest is not ameliorating factor and exertion as a exacerbating factor for his pain. He denies any recent nausea, vomiting or diarrhea and has had no fever or chills. He additionally denies palpitations, cough, sputum production, hemoptysis, rash and syncope. His past medical history is positive for hyperlipidemia, hypertension, hypothyroidism, osteoarthritis, chronic renal failure and prediabetes. He is being admitted for cardiology evaluation. This history obtained by the hospitalist was reviewed and confirmed. Patient denied any prior history of myocardial infarction, angina, blood clots in the legs are in the lungs. Patient does have multiple allergies and this was confirmed. Patient describes severe muscle discomfort with multiple statins. He also describes anaphylactic reaction with contrast agent, with IVP dye many years ago. Patient also describes history of chronic kidney disease. Patient does give history of snoring but never been tested for sleep apnea. Past Medical History Cardiac Medical History: Reports: Hyperlipidema, Hypertension Denies: Atrial Fibrillation, Congestive Heart Failure, Coronary Artery Disease, DVT, Myocardial Infarction, Peripheral Vascular Disease, Pulmonary Embolism, Heart Murmur Pulmonary Medical History: Reports: None EENT Medical History: Reports: None Neurological Medical History: Reports: None Endocrine Medical History: Reports: Diabetes Mellitus Type 2 - Prediabetes, Hypothyroidism Renal/ Medical History: Reports: Chronic Kidney Disease Malignancy Medical History: Reports: None GI Medical History: Reports: Gastroesophageal Reflux Disease Musculoskeltal Medical History: Reports: Arthritis - Osteoarthritis Skin Medical History: Reports: None Psychiatric Medical History: Reports: None Denies: Depression Traumatic Medical History: Reports: None Hematology: Reports: None Infectious Medical History: Reports: None Past Surgical History Past Surgical History: Reports: None Social History Information Source: Patient Smoking Status: Former Smoker Frequency of Alcohol Use: None Hx Recreational Drug Use: No Hx Prescription Drug Abuse: No - Advance Directive Resuscitation Status: Full Code Surrogate healthcare decision maker:: Patient's is the surrogate decision-maker Family History Family History: Hypertension Parental Family History Reviewed: Yes Children Family History Reviewed: Yes Sibling(s) Family History Reviewed.: Yes Medication/Allergy Home Medications: Alfuzosin HCl [Uroxatral SR 10 mg Tablet] 10 mg PO QHS 12/01/12 Aspirin [Aspirin 325 mg Tablet] 325 mg PO QHS 12/01/12 Atenolol [Tenormin 50 mg Tablet] 100 mg PO QHS 12/01/12 Carboxymethylcellulose Sodium [Refresh Tears Drops] 1 dropperful OU Q4HP PRN Cetirizine HCl [Aller-Irasema] 10 mg PO DAILY 12/01/12 Ciclopirox/Skin Cleanser No.28 [Ciclodan 0.77% Cream Kit] 1 applic TOP BID 12/01 Clobetasol Propionate/Emoll [Clobetasol Emollient 0.05% Crm] 1 applic TOP QHS Colesevelam HCl [Welchol 625 mg Tablet] 1,875 mg PO BID 12/01/12 Cyanocobalamin (Vitamin B-12) [Vitamin B-12] 500 mcg PO QHS 12/01/12 Finasteride [Proscar 5 mg Tablet] 5 mg PO QPM 12/01/12 Ketoconazole [Nizoral 2% Shampoo 120 ml Bottle] 1 applic TOP Q2D PRN 12/01/12 Levothyroxine Sodium [Synthroid] 125 mcg PO Q6AM 12/01/12 Rabeprazole Sodium [Aciphex] 20 mg PO DAILY 12/01/12 [place] 450 mg PO DAILY 12/01/12 Alprostadil [Edex] 20 mcg IM ASDIR PRN 10/31/15 Diclofenac Sodium [Voltaren] 4 gm TP Q4HP PRN 10/31/15 Furosemide [Lasix] 40 mg PO QAM 10/31/15 Glimepiride [Amaryl] 2 mg PO DAILY 10/31/15 Magnesium Oxide 400 mg PO Q8 10/31/15 Methocarbamol 500 mg PO Q6HP PRN 10/31/15 Mineral Oil/Petrolatum,White [Absorbase Ointment] 1 applic TP QID 10/31/15 Maupin-3 Acid Ethyl Esters [Lovaza 1 gm Capsule] 2 gm PO BID 10/31/15 Telmisartan [Micardis 80 mg Tablet] 80 mg PO DAILY 11/01/15 Cholecalciferol (Vitamin D3) [Vitamin D3] 5,000 unit PO DAILY 10/13/17 Ergocalciferol (Vitamin D2) [Drisdol 50,000 unit (1.25MG) Capsule] 50,000 unit PO WE@1000 10/13/17 Furosemide [Lasix 20 mg Tablet] 20 mg PO DAILY@1400 10/13/17 Meloxicam [Mobic] 15 mg PO DAILYP PRN 10/13/17 Olopatadine HCl [Pataday] 1 drop OU DAILYP PRN 10/13/17 Clopidogrel Bisulfate [Plavix 75 mg Tablet] 75 mg PO DAILY 30 Days #30 tablet Isosorbide Mononitrate [Imdur 60 mg Tablet.er] 60 mg PO QPM 30 Days #30 tab.er.24h 10/15/17 Metoprolol Succinate 100 mg PO BID 30 Days #60 tab.er.24h 10/15/17 Ranolazine [Ranexa 500 mg Tab.sr] 500 mg PO BID #60 tab.sr.12h 10/15/17 Allergies/Adverse Reactions: atorvastatin calcium [From Lipitor] Allergy (Verified 10/13/17 11:08) cephradine [From Velosef] Allergy (Verified 10/13/17 11:08) cerivastatin sodium [From Baycol] Allergy (Verified 10/13/17 11:08) chloramphenicol [From Chloromycetin] Allergy (Verified 10/13/17 11:08) chloramphenicol sod succ [From Chloromycetin] Allergy (Verified 10/13/17 11:08) cholera vaccine [Cholera Vaccine] Allergy (Verified 10/13/17 11:08) colestipol HCl [From Colestid] Allergy (Verified 10/13/17 11:08) doxycycline hyclate [From Vibramycin] Allergy (Verified 10/13/17 11:08) erythromycin base [Erythromycin Base] Allergy (Verified 10/13/17 11:08) ezetimibe [From Zetia] Allergy (Verified 10/13/17 11:08) fenofibrate,micronized [From Tricor] Allergy (Verified 10/13/17 11:08) lisinopril [Lisinopril] Allergy (Verified 10/13/17 11:08) nifedipine [From Adalat] Allergy (Verified 10/13/17 11:08) Penicillins Allergy (Verified 10/13/17 11:08) simvastatin [From Zocor] Allergy (Verified 10/13/17 11:08) sulfamethoxazole [From Septra] Allergy (Verified 10/13/17 11:08) terazosin [Terazosin] Allergy (Verified 10/13/17 11:08) trimethoprim [From Septra] Allergy (Verified 10/13/17 11:08) contrast IVP Dye Allergy (Uncoded 10/13/17 11:08) Review of Systems Review of Systems: Please see history of present illness and past medical history as wall. Constitutional: No fever or chills reported. Head : No recent chronic headaches, recent head injury. Eyes: No recent eye pain, diplopia, redness, discharge, acute visual changes. Ears: No recent chronic ear pain, acute hearing loss, ear discharge. Oral cavity: No recent ulcerations, bleeding, oral cavity discomfort. Neck: No recent acute neck pain reported. Hematologic: No recent easy bruising or bleeding. Lymphatic: No recent lymph node enlargement reported. Cardiovascular system review: See history of present illness. Respiratory system review: No hemoptysis or blood clots in the lungs reported. Mild Shortness of breath on exertion Gastrointestinal system review: Negative for any recent acute hematemesis, melena. Genitourinary system review: No recent acute or chronic hematuria, flank pain, UTI etc. reported. Skin system review: Negative for any recent abnormal bruising, no rash, no pruritus reported. Neurologic: No prior history of strokes, mini strokes, seizure disorder. Psychologic: No history of major psychosis or major depression reported. Musculoskeletal: Minor aches and pains reported. No acute joint swelling reported. Endocrine: No recent polyuria, polydipsia, recent heat or cold intolerance. Physical Exam Vital Signs: Temp Pulse Resp BP Pulse Ox 97.6 F 68 12 161/73 H 98 10/13/17 11:13 10/13/17 11:13 10/13/17 20:01 10/13/17 20:00 10/13/17 20:01 Intake & Output 10/12/17 10/13/17 10/14/17 06:59 06:59 06:59 Intake Total 300 Output Total 500 Balance -200 Exam: GENERAL: well-nourished and in no acute distress. Alert and oriented x3 HEAD: Atraumatic, normocephalic. EYES: Pupils equal round and reactive to light, extraocular movements intact, sclera anicteric, conjunctiva are normal. ENT: TMs normal, nares patent, oropharynx clear without exudates. Moist mucous membranes. No oral ulcerations or bleeding gums noted NECK: supple without lymphadenopathy. Trachea is central. No cervical or axillary lymphadenopathy noted. Carotids are 2+, JVD WNL LUNGS: Respiration seems nonlabored, no significant accessory muscle action noted. Breath sounds clear to auscultation bilaterally and equal noted. No wheezes rales or rhonchi noted. No significant dullness noted on percussion. CHEST: Palpation of the chest wall shows no significant chest wall tenderness. HEART: [place] CLINIC ADMINISTRATOR, No PSH, 1/6 ARGENIS aortic area, 1/6 campbell systolic murmur mitral area, no rubs, no gallops. ABDOMEN: Soft, no significant tenderness appreciated, normoactive bowel sounds. No guarding, no rebound. No rigidity noted . No masses appreciated. EXTREMITIES: Pedal pulses are 1-2+, no calf tenderness noted. No clubbing or cyanosis. negative pedal edema noted NEUROLOGICAL: Focused neurological exam showed no significant neurologic deficit. Normal speech, no focal weakness appreciated. PSYCH: Normal mood, normal affect. Judgment and insight within normal limits. SKIN: No significant ecchymosis, skin is noted to be warm. MUSCULOSKELETAL EXAM: No significant acute joint swelling noted. Results EKG Comments: Sinus rhythm, no acute ST-T wave changes are noted Impressions: Chest X-Ray 10/13/17 12:25 IMPRESSION: Mild chronic lung changes with no acute cardiopulmonary disease. Assessment & Plan - Diagnosis (1) Chest pain Qualifiers: Chest pain type: unspecified Qualified Code(s): R07.9 - Chest pain, unspecified Is this a current diagnosis for this admission?: Yes (2) COPD (chronic obstructive pulmonary disease) Is this a current diagnosis for this admission?: Yes (3) Chronic kidney disease, stage III (moderate) Is this a current diagnosis for this admission?: Yes (4) Diabetes mellitus Qualifiers: Diabetes mellitus type: type 2 Diabetes mellitus handbook writer insulin use: without handbook writer use Diabetes mellitus complication status: with kidney complications Diabetes mellitus complication detail: with chronic kidney disease Chronic kidney disease stage: stage 3 (moderate) Qualified Code(s): E11.22 - Type 2 diabetes mellitus with diabetic chronic kidney disease; N18.3 - Chronic kidney disease, stage 3 (moderate); N18.3 - Chronic kidney disease, stage 3 (moderate); N18.3 - Chronic kidney disease, stage 3 (moderate) Is this a current diagnosis for this admission?: Yes (5) GERD (gastroesophageal reflux disease) Is this a current diagnosis for this admission?: Yes (6) Hypertension Is this a current diagnosis for this admission?: Yes - Notes Notes: Recommend treat as ACS. Add Plavix, patient has multiple allergies which makes treatment difficult. Will order a 2D echo and a nuclear stress test when patient is stable. Chest pain: Most likely related to acute coronary syndrome, unstable angina. Will treat patient as such with aspirin, Plavix, statins, beta blockers, DEMETRIUS inhibitor/ARB's. Patient will also be treated with nitrates. Discussed that if he continues with recurrent chest pain or significant EKG changes will then end up transferring him for heart catheterization but otherwise due to his comorbid diagnosis of significant allergy to x-ray dye and also chronic kidney disease, initial trial of medical management is satisfactory option. COPD: Currently stable. Continue current therapy. Chronic kidney disease: Avoid nonsteroidal anti-inflammatory medications and also contrast agent if possible. Diabetes: Have recommended weight loss, carbohydrate restriction. Recommend good control of blood sugar but avoid any hyper or hypoglycemia. Gastroesophageal reflux disease: Continue Pepcid at twice dose. Hypertension: Blood pressure has been somewhat difficult to control. Patient has multiple allergies. Will try to get it under better control. - Time Time Spent: 30 to 50 Minutes - CODE STATUS was discussed, patient remains full code. Surrogate decision-maker patient's . Multiple medical problems were addressed. More than 50% of the time spent coordinating care, discussing management plans with involved caregivers. Management plans discussed with involved personnels. Medical decision making was of moderate to high complexity , patient's has multiple comorbidities. Medications reviewed and adjusted accordingly: Yes
--- NOTE | 2017-10-14 23:08 | PDOC PROGRESS REPORT ---
Subjective Progress Note for:: 10/14/17 Subjective:: Patient seems to be doing better with gradual improvement. Pt is denying any chest arm or neck discomfort. Patient denying any PND, orthopnea. Patient denied any sustained palpitations, dizziness, syncope, near syncope. Patient denying any fever chills. Patient denying any other significant discomfort. Patient is maintaining sinus rhythm. Review of systems: Rest review of systems negative. Medications: Medications have been reviewed. Reason For Visit: CHEST PAIN Physical Exam Vital Signs: Temp Pulse Resp BP Pulse Ox 98.5 F 77 16 166/67 H 95 10/14/17 19:37 10/14/17 19:37 10/14/17 19:37 10/14/17 19:37 10/14/17 19:37 Intake & Output 10/13/17 10/14/17 10/15/17 06:59 06:59 06:59 Intake Total 300 1137 Output Total 500 625 Balance -200 512 Weight 105.9 kg Results Laboratory Results: 10/14/17 04:52 10/14/17 04:52 10/14/17 10/14/17 10/14/17 04:52 04:52 04:52 WBC 9.0 RBC 4.53 Hgb 13.4 L Hct 39.2 MCV 87 MCH 29.6 MCHC 34.2 RDW 14.0 Plt Count 151 Sodium 139.8 Potassium 5.1 H Chloride 106 Carbon Dioxide 28 Anion Gap 6 BUN 17 Creatinine 1.52 H Est GFR ( Amer) 55 L Est GFR (Non-Af Amer) 45 L Glucose 105 Calcium 8.9 Magnesium 2.1 TSH 2.80 10/13/17 10/13/17 10/14/17 23:06 23:06 04:52 Creatine Kinase 51 L 48 L CK-MB (CK-2) 1.24 Troponin I 0.089 10/14/17 04:52 Creatine Kinase CK-MB (CK-2) 1.24 Troponin I 0.091 Impressions: Chest X-Ray 10/13/17 12:25 IMPRESSION: Mild chronic lung changes with no acute cardiopulmonary disease. Assessment & Plan - Diagnosis (1) Chest pain Qualifiers: Chest pain type: unspecified Qualified Code(s): R07.9 - Chest pain, unspecified Is this a current diagnosis for this admission?: Yes (2) COPD (chronic obstructive pulmonary disease) Is this a current diagnosis for this admission?: Yes (3) Chronic kidney disease, stage III (moderate) Is this a current diagnosis for this admission?: Yes (4) Diabetes mellitus Qualifiers: Diabetes mellitus type: type 2 Diabetes mellitus manager terminal insulin use: without snf use Diabetes mellitus complication status: with kidney complications Diabetes mellitus complication detail: with chronic kidney disease Chronic kidney disease stage: stage 3 (moderate) Qualified Code(s): E11.22 - Type 2 diabetes mellitus with diabetic chronic kidney disease; N18.3 - Chronic kidney disease, stage 3 (moderate); N18.3 - Chronic kidney disease, stage 3 (moderate); N18.3 - Chronic kidney disease, stage 3 (moderate) Is this a current diagnosis for this admission?: Yes (5) GERD (gastroesophageal reflux disease) Is this a current diagnosis for this admission?: Yes (6) Hypertension Is this a current diagnosis for this admission?: Yes - Notes Notes: 2D echo shows relatively well-preserved LVEF. Patient being scheduled for a nuclear stress test tomorrow. Chest pain: Most likely related to acute coronary syndrome, unstable angina. Will treat patient as such with aspirin, Plavix, statins, beta blockers, DEMETRIUS inhibitor/ARB's. Patient will also be treated with nitrates. Discussed that if he continues with recurrent chest pain or significant EKG changes will then end up transferring him for heart catheterization but otherwise due to his comorbid diagnosis of significant allergy to x-ray dye and also chronic kidney disease, initial trial of medical management is satisfactory option. COPD: Currently stable. Continue current therapy. Chronic kidney disease: Avoid nonsteroidal anti-inflammatory medications and also contrast agent if possible. Diabetes: Have recommended weight loss, carbohydrate restriction. Recommend good control of blood sugar but avoid any hyper or hypoglycemia. Gastroesophageal reflux disease: Continue Pepcid at twice dose. Hypertension: Blood pressure has been somewhat difficult to control. Patient has multiple allergies. Will try to get it under better control. - Time Time with patient: Greater than 35 minutes - 2D echo results were discussed. Patient questions are answered. Patient's troponin I came back in the low suggestive range however patient prefers medical management at this point. This is not unreasonable since 2D echo shows normal LVEF. Further plan will follow results of stress test. Have tried to convince patient to try statin therapy but is declining. Medications reviewed and adjusted accordingly: Yes
--- NOTE | 2017-10-15 01:01 | PDOC PROGRESS REPORT ---
Subjective Progress Note for:: 10/14/17 Subjective:: MUNIR SUMMERS is a 72 year old male who presented to the emergency room with a history of chest pain beginning on the afternoon of the day prior to his admission. He states that he was walking from [facility] to his car which was parked a fair distance away when he developed severe dyspnea, profuse diaphoresis, and a severe, crushing pressure type, anterior, substernal, chest pain without radiation. The pain was constant for a couple of minutes and and then subsided over approximately 10-15 minutes with rest. He developed a similar episode on the morning of admission when he had taken out some trash from the house to the curb. This episode again involved severe dyspnea and severe chest pressure but less prominent diaphoresis. The pain was again nonradiating. He denies prior episodes and has identified rest is not ameliorating factor and exertion as a exacerbating factor for his pain. He denies any recent nausea, vomiting or diarrhea and has had no fever or chills. He additionally denies palpitations, cough, sputum production, hemoptysis, rash and syncope. His past medical history is positive for hyperlipidemia, hypertension, hypothyroidism, osteoarthritis, chronic renal failure and prediabetes. He is being admitted for cardiology evaluation. Dr. Gayle has been consulted. 10/14/17: His pain is resolved but he still feels "like there is some pressure in there". He denies nausea, diaphoresis, dyspnea and cough. He will be getting a 2 day stress study done tomorrow. Reason For Visit: CHEST PAIN Physical Exam Vital Signs: Temp Pulse Resp BP Pulse Ox 99.1 F 77 20 136/59 H 95 10/14/17 23:11 10/14/17 23:11 10/14/17 23:11 10/14/17 23:11 10/14/17 23:11 Intake & Output 10/13/17 10/14/17 10/15/17 06:59 06:59 06:59 Intake Total 300 1137 Output Total 500 750 Balance -200 387 Weight 105.9 kg General appearance: PRESENT: no acute distress, cooperative Head exam: PRESENT: atraumatic, normocephalic Eye exam: PRESENT: conjunctiva pink. ABSENT: scleral icterus Ear exam: PRESENT: normal external ear exam. ABSENT: drainage Mouth exam: PRESENT: neck supple, tongue midline Neck exam: ABSENT: JVD, thyromegaly, tracheal deviation Respiratory exam: PRESENT: clear to auscultation shahla, symmetrical, unlabored Cardiovascular exam: PRESENT: RRR. ABSENT: clicks, gallop, rubs Vascular exam: PRESENT: normal capillary refill. ABSENT: pallor GI/Abdominal exam: PRESENT: normal bowel sounds, soft Extremities exam: ABSENT: joint swelling, pedal edema Musculoskeletal exam: PRESENT: full ROM, normal inspection Neurological exam: PRESENT: alert, awake, oriented to person, oriented to place , oriented to time, oriented to situation, CN II-XII grossly intact. ABSENT: motor sensory deficit Psychiatric exam: PRESENT: appropriate affect, normal mood Skin exam: ABSENT: jaundice, rash, urticaria Results Laboratory Results: 10/14/17 04:52 10/14/17 04:52 10/14/17 10/14/17 10/14/17 04:52 04:52 04:52 WBC 9.0 RBC 4.53 Hgb 13.4 L Hct 39.2 MCV 87 MCH 29.6 MCHC 34.2 RDW 14.0 Plt Count 151 Sodium 139.8 Potassium 5.1 H Chloride 106 Carbon Dioxide 28 Anion Gap 6 BUN 17 Creatinine 1.52 H Est GFR ( Amer) 55 L Est GFR (Non-Af Amer) 45 L Glucose 105 Calcium 8.9 Magnesium 2.1 TSH 2.80 10/13/17 10/13/17 10/14/17 23:06 23:06 04:52 Creatine Kinase 51 L 48 L CK-MB (CK-2) 1.24 Troponin I 0.089 10/14/17 04:52 Creatine Kinase CK-MB (CK-2) 1.24 Troponin I 0.091 Impressions: Chest X-Ray 10/13/17 12:25 IMPRESSION: Mild chronic lung changes with no acute cardiopulmonary disease. Assessment & Plan - Diagnosis (1) Chest pain Qualifiers: Chest pain type: unspecified Qualified Code(s): R07.9 - Chest pain, unspecified Is this a current diagnosis for this admission?: Yes Plan: Cardiology consultation and stress testing per cardiology. (2) COPD (chronic obstructive pulmonary disease) Is this a current diagnosis for this admission?: Yes Plan: Continue home pulmonary medications and treatments. Monitor pulmonary status throughout hospital course. (3) Chronic kidney disease, stage III (moderate) Is this a current diagnosis for this admission?: Yes Plan: Monitor renal status throughout hospital course. (4) Diabetes mellitus Qualifiers: Diabetes mellitus type: type 2 Diabetes mellitus oysterman insulin use: without oysterman use Diabetes mellitus complication status: with kidney complications Diabetes mellitus complication detail: with chronic kidney disease Chronic kidney disease stage: stage 3 (moderate) Qualified Code(s): E11.22 - Type 2 diabetes mellitus with diabetic chronic kidney disease Is this a current diagnosis for this admission?: Yes Plan: Monitor blood sugar status with before meals and at bedtime blood sugars throughout hospital course. Check hemoglobin A1c. (5) GERD (gastroesophageal reflux disease) Is this a current diagnosis for this admission?: Yes Plan: Continue home medications throughout hospital course. Observe for complications or worsening of this disease process. (6) Hypertension Is this a current diagnosis for this admission?: Yes Plan: Continue home antihypertensive regimen. Monitor blood pressure throughout hospital course. (7) Hypothyroid Is this a current diagnosis for this admission?: Yes Plan: Continue home thyroid replacement. Monitor thyroid lab work during hospital course. - Time Time Spent with patient: 25-34 minutes Medications reviewed and adjusted accordingly: Yes Anticipated discharge: Home Within: within 48 hours
[2017-10-15] MEDS: LEVOTHYROXINE SODIUM 0.1 MG TABLET PO SCH (06:27)
[2017-10-15] MEDS: MAGNESIUM OXIDE 400 MG TABLET PO SCH ×2 (06:27→15:40)
[2017-10-15] MEDS: LANSOPRAZOLE 30 MG TAB.RAP.DR PO SCH (06:27)
[2017-10-15] MEDS: LEVOTHYROXINE SODIUM 0.025 MG TABLET PO SCH (06:27)
[2017-10-15] MEDS: HEPARIN SOD (PORCINE) 5,000 UNIT/ML 1 ML SYRINGE SUBCUT SCH ×2 (06:27→15:40)
[2017-10-15 06:45] LABS: HEMATOCRIT 43.1 % (37.9-51.0); HEMOGLOBIN 14.4 g/dL (13.5-17.0); MEAN CORPUSCULAR HEMOGLOBIN 29.2 pg (27.0-33.4); MEAN CORPUSCULAR HGB CONC 33.5 g/dL (32.0-36.0); MEAN CORPUSCULAR VOLUME 87 fl (80-97); PLATELET COUNT 167 10^3/uL (150-450); RED BLOOD COUNT 4.95 10^6/uL (4.35-5.55)
[2017-10-15 07:03] LABS: ANION GAP 8 (5-19); BLOOD UREA NITROGEN 21 mg/dL (7-20); CALCIUM 9.6 mg/dL (8.4-10.2); CARBON DIOXIDE 27 mmol/L (22-30); CHLORIDE 105 mmol/L (98-107); GLUCOSE 114 mg/dL (75-110); POTASSIUM 4.9 mmol/L (3.6-5.0); SODIUM 139.8 mmol/L (137-145)
[2017-10-15] MEDS: COLESEVELAM HCL 625 MG TABLET PO SCH ×2 (09:01→18:12)
[2017-10-15] MEDS: GLIMEPIRIDE 1 MG TABLET PO SCH (09:04)
[2017-10-15] MEDS: LOSARTAN POTASSIUM 50 MG TABLET PO SCH (12:42)
[2017-10-15] MEDS: FAMOTIDINE 20 MG TABLET PO SCH (12:42)
[2017-10-15] MEDS: CLOPIDOGREL BISULFATE 75 MG TABLET PO SCH (12:42)
[2017-10-15] MEDS: CHOLECALCIFEROL (D3) 1,000 UNIT TABLET PO SCH (12:44)
[2017-10-15] MEDS: OMEGA-3 ACID ETHYL ESTERS 1 GM CAPSULE PO SCH ×2 (12:44→18:13)
[2017-10-15] MEDS: CETIRIZINE 10 MG TABLET PO SCH (12:44)
[2017-10-15] MEDS: MINERAL OIL/PETROLATUM,WHITE CREAM 114 GM TP SCH ×3 (12:48→18:27)
[2017-10-15] MEDS: DOCUSATE SODIUM 100 MG CAPSULE PO SCH ×2 (12:49→18:27)
[2017-10-15] MEDS ORDERED: CAFFEINE CITRATED INJ/PF 60 MG/3 ML SDV ONE (14:43)
[2017-10-15] MEDS ORDERED: REGADENOSON INJ 0.4 MG/5 ML DISP.SYRIN IV ONE (14:43)
--- NOTE | 2017-10-15 15:32 | PDOC PROGRESS REPORT ---
Subjective Progress Note for:: 10/15/17 Subjective:: Patient seems to be doing better with gradual improvement. Patient complains of chest tightness and shortness of breath on exertion. 2D echo had shown normal LVEF. Patient denying any PND, orthopnea. Patient denied any sustained palpitations, dizziness, syncope, near syncope. Patient denying any fever chills. Patient denying any other significant discomfort. Patient is maintaining sinus rhythm. Review of systems: Rest review of systems negative. Medications: Medications have been reviewed. Reason For Visit: CHEST PAIN Physical Exam Vital Signs: Temp Pulse Resp BP Pulse Ox 98.7 F 65 20 158/75 H 97 10/15/17 07:18 10/15/17 07:18 10/15/17 07:18 10/15/17 07:18 10/15/17 07:18 Intake & Output 10/14/17 10/15/17 10/16/17 06:59 06:59 06:59 Intake Total 300 1137 120 Output Total 500 750 Balance -200 387 120 Weight 105.9 kg 104.7 kg Exam: GENERAL: well-nourished and in no acute distress. Alert and oriented x3 HEAD: Atraumatic, normocephalic. EYES: Pupils equal round and reactive to light, extraocular movements intact, sclera anicteric, conjunctiva are normal. ENT: TMs normal, nares patent, oropharynx clear without exudates. Moist mucous membranes. No oral ulcerations or bleeding gums noted NECK: supple without lymphadenopathy. Trachea is central. No cervical or axillary lymphadenopathy noted. Carotids are 2+, JVD WNL LUNGS: Respiration seems nonlabored, no significant accessory muscle action noted. Breath sounds clear to auscultation bilaterally and equal noted. No wheezes rales or rhonchi noted. No significant dullness noted on percussion. CHEST: Palpation of the chest wall shows no significant chest wall tenderness. HEART: [place] [employer], No PSH, 1/6 ARGENIS aortic area, 1/6 campbell systolic murmur mitral area, no rubs, no gallops. ABDOMEN: Soft, no significant tenderness appreciated, normoactive bowel sounds. No guarding, no rebound. No rigidity noted . No masses appreciated. EXTREMITIES: Pedal pulses are 1-2+, no calf tenderness noted. No clubbing or cyanosis. negative pedal edema noted NEUROLOGICAL: Focused neurological exam showed no significant neurologic deficit. Normal speech, no focal weakness appreciated. PSYCH: Normal mood, normal affect. Judgment and insight within normal limits. SKIN: No significant ecchymosis, skin is noted to be warm. MUSCULOSKELETAL EXAM: No significant acute joint swelling noted. Results Laboratory Results: 10/15/17 06:29 10/15/17 06:29 18 10/15/17 06:29 06:29 WBC 12.0 H RBC 4.95 Hgb 14.4 Hct 43.1 MCV 87 MCH 29.2 MCHC 33.5 RDW 14.0 Plt Count 167 Sodium 139.8 Potassium 4.9 Chloride 105 Carbon Dioxide 27 Anion Gap 8 BUN 21 H Creatinine 1.65 H Est GFR ( Amer) 50 L Est GFR (Non-Af Amer) 41 L Glucose 114 H Calcium 9.6 Magnesium 2.0 10/13/17 10/13/17 10/14/17 23:06 23:06 04:52 Creatine Kinase 51 L 48 L CK-MB (CK-2) 1.24 Troponin I 0.089 10/14/17 04:52 Creatine Kinase CK-MB (CK-2) 1.24 Troponin I 0.091 EKG Comments: Telemetry shows sinus rhythm without any sustained tachycardia or bradycardia. Impressions: Chest X-Ray 10/13/17 12:25 IMPRESSION: Mild chronic lung changes with no acute cardiopulmonary disease. Assessment & Plan - Diagnosis (1) Chest pain Qualifiers: Chest pain type: unspecified Qualified Code(s): R07.9 - Chest pain, unspecified Is this a current diagnosis for this admission?: Yes (2) COPD (chronic obstructive pulmonary disease) Is this a current diagnosis for this admission?: Yes (3) Chronic kidney disease, stage III (moderate) Is this a current diagnosis for this admission?: Yes (4) Diabetes mellitus Qualifiers: Diabetes mellitus type: type 2 Diabetes mellitus fci insulin use: without fci use Diabetes mellitus complication status: with kidney complications Diabetes mellitus complication detail: with chronic kidney disease Chronic kidney disease stage: stage 3 (moderate) Qualified Code(s): E11.22 - Type 2 diabetes mellitus with diabetic chronic kidney disease Is this a current diagnosis for this admission?: Yes (5) GERD (gastroesophageal reflux disease) Is this a current diagnosis for this admission?: Yes (6) Hypertension Is this a current diagnosis for this admission?: Yes - Notes Notes: Chest pain: This was evaluated with a nuclear stress test. It showed inferior wall ischemia however SDS was noted to be only 2, overall LVEF was noted to be normal at 53% by EKG gated imaging. Since patient has significant allergies especially to contrast agent with anaphylaxis, feel that it is best to try optimize medical management and see how things proceed. Also noted that patient blood pressure and heart rate is noted to be increased. Will try to get this under control. However if patient continues with chest pain in spite of maximal medical therapy then heart catheterization will become indicated. Hypertension: Blood pressure noted to be significantly elevated in the stress lab. Have optimized medical management for hypertension. Dyslipidemia: Patient describes allergies to atorvastatin and does not want to take other statins however should be considered a candidate for pitavastatin therapy. We will try to convince patient to take that. Obesity: Patient will benefit from weight loss. - Time Time with patient: Greater than 35 minutes - More than 50% of the time spent coordinating care, discussing management plans with involved caregivers. Management plans discussed with involved personnels. Medical decision making was of moderate to high complexity, patient's has multiple comorbidities. Medications reviewed and adjusted accordingly: Yes
--- NOTE | 2017-10-15 15:35 | DRAGON STRESS TEST REPORT ---
INTRAVENOUS LEXISCAN CARDIOLITE STRESS TEST USING SINGLE PHOTON EMMISION COMPUTERIZED TOMOGRAPHIC. DATE OF PROCEDURE: October 15, 2017, INDICATION : Chest pain CARDIAC RISK FACTORS: Diabetes, hypertension, dyslipidemia, chronic kidney disease RESTING EKG: Sinus rhythm without any baseline ST-T wave changes STRESS EKG: No significant ST segment changes noted with LexiScan bolus REASON FOR TERMINATION: Protocol. PROCEDURE REPORT: Baseline heart rate 75 beats per minute with blood pressure of 185/91. Patient had no significant complaints. Patient was bolused with Lexiscan 0.4 mg intravenously followed by saline bolus. Heart rate at 2 minutes post bolus 90 with a blood pressure of 134/85. 3 minutes post bolus heart rate 88 with blood pressure of 162/84. No significant EKG changes were noted. Patient had no significant complaints during the procedure or postprocedure. CONCLUSIONS: Normal EKG and hemodynamic response to IV LexiScan. NUCLEAR DATA: At rest the patient was given 14.92 millicuries of technetium 99 sestamibi injected intravenously. As per protocol rest gated SPECT images were obtained. On day of stress test, the patient was given intravenous LexiScan at a dose of 0.4 mg in 5 mL intravenously, followed by flush with normal saline. Subsequently the stress dose of 45.1 millicuries of technetium 99 sestamibi was injected intravenously. As per protocol stress gated images were obtained. NUCLEAR INTERPRETATION: Both raw and processed data were used for interpretation. Visual, qualitative, computer-generated quantitative data was used. There was good myocardial uptake of technetium compound. Motion artifact and soft tissue attenuations were noted. Increased visceral uptake was noted. Mild decreased perfusion defect noted in the inferior wall consistent with mild inferior wall ischemia however SDS was 2, therefore could be medically managed initially. No definitive areas of fixed perfusion defect or scars noted. EKG gated imaging showed LV EF at 53 %, rest and stress gated EF similar visually. T. I D. ratio was 0.98. Lung heart ratio noted to be within normal limits 0.31. No significant extracardiac and abnormal radiotracer activities were noted. RV free wall uptake was noted to be WNL. IMPRESSION: Also refer to comments under nuclear interpretation. Also test results needs to be interpreted in the context of pretest probability. 1. Mild decreased perfusion defect noted in the inferior wall consistent with mild inferior wall ischemia however SDS was 2, therefore could be medically managed initially. 2. There is no definitive scintigraphic evidence of myocardial infarction/scar. 3. EKG gated imaging shows left ventricular ejection fraction of approx. 53 %. 4. Clinical correlation requested as worse disease and or balanced ischemia could be missed. In approximately 10% of the cases Lexiscan may not cause adequate vasodilatory stress. RECOMMENDATIONS: Aggressive risk factor modification and medical management. Further evaluation may be needed if continued symptoms or other high risk indicators are noted on clinical evaluation. Close cardiology follow-up is also recommended. Clinical correlation with echocardiogram derived ejection fraction. Inability to exercise by itself can lead to increased cardiovascular event risks. Consider cardiology consultation and or follow-up if clinically indicated. I am available for cardiology evaluation and consultation if requested by the engineering director, unless patient already has a credit specialist. Dr. Ev Gayle. MRCP Board certified in cardiology and sleep medicine. Board certified in nuclear cardiology, adult echocardiography. MATTHEW
[2017-10-15] MEDS: FUROSEMIDE 20 MG TABLET PO SCH (15:39)
--- NOTE | 2017-10-15 16:38 | PDOC PROGRESS REPORT ---
Subjective Progress Note for:: 10/15/17 Subjective:: FRANK SUMMERS is a 72 year old male who presented to the emergency room with a history of chest pain beginning on the afternoon of the day prior to his admission. He states that he was walking from [facility] to his car which was parked a fair distance away when he developed severe dyspnea, profuse diaphoresis, and a severe, crushing pressure type, anterior, substernal, chest pain without radiation. The pain was constant for a couple of minutes and and then subsided over approximately 10-15 minutes with rest. He developed a similar episode on the morning of admission when he had taken out some trash from the house to the curb. This episode again involved severe dyspnea and severe chest pressure but less prominent diaphoresis. The pain was again nonradiating. He denies prior episodes and has identified rest is not ameliorating factor and exertion as a exacerbating factor for his pain. He denies any recent nausea, vomiting or diarrhea and has had no fever or chills. He additionally denies palpitations, cough, sputum production, hemoptysis, rash and syncope. His past medical history is positive for hyperlipidemia, hypertension, hypothyroidism, osteoarthritis, chronic renal failure and prediabetes. He is being admitted for cardiology evaluation. Dr. Gayle has been consulted. 10/14/17: His pain is resolved but he still feels "like there is some pressure in there". He denies nausea, diaphoresis, dyspnea and cough. He will be getting a 2 day stress study done tomorrow. 10/15/17: Frank states that he is not having any chest pain and had no chest pain or discomfort, including the pressure that he had been having yesterday, with his stress test today. He denies nausea, vomiting, dyspnea, diaphoresis, palpitations, lightheadedness and syncope. His stress test shows no evidence of acute ischemia or injury. The degree of coronary artery disease seen on his stress test suggests that medical management would be most appropriate and this will be undertaken therapy initiated here in the hospital. He will be discharged to home tomorrow. Reason For Visit: CHEST PAIN Physical Exam Vital Signs: Temp Pulse Resp BP Pulse Ox 97.7 F 71 20 169/67 H 96 10/15/17 12:44 10/15/17 12:44 10/15/17 12:44 10/15/17 12:44 10/15/17 12:44 Intake & Output 10/14/17 10/15/17 10/16/17 06:59 06:59 06:59 Intake Total 300 1137 120 Output Total 500 750 Balance -200 387 120 Weight 105.9 kg 104.7 kg General appearance: PRESENT: no acute distress, cooperative, obese Head exam: PRESENT: atraumatic, normocephalic Eye exam: PRESENT: conjunctiva pink. ABSENT: conjunctival injection Ear exam: PRESENT: normal external ear exam. ABSENT: drainage Mouth exam: PRESENT: moist, neck supple Neck exam: ABSENT: thyromegaly, tracheal deviation Respiratory exam: PRESENT: clear to auscultation shahla, symmetrical, unlabored Cardiovascular exam: PRESENT: RRR. ABSENT: clicks, gallop, rubs Vascular exam: PRESENT: normal capillary refill. ABSENT: pallor GI/Abdominal exam: PRESENT: normal bowel sounds, soft Extremities exam: ABSENT: joint swelling, pedal edema, tenderness Musculoskeletal exam: PRESENT: full ROM, normal inspection Neurological exam: PRESENT: alert, awake, oriented to person, oriented to place , oriented to time, oriented to situation, CN II-XII grossly intact. ABSENT: motor sensory deficit Psychiatric exam: PRESENT: appropriate affect, normal mood Skin exam: ABSENT: jaundice, rash, urticaria Results Laboratory Results: 10/15/17 06:29 10/15/17 06:29 10/15/17 10/15/17 06:29 06:29 WBC 12.0 H RBC 4.95 Hgb 14.4 Hct 43.1 MCV 87 MCH 29.2 MCHC 33.5 RDW 14.0 Plt Count 167 Sodium 139.8 Potassium 4.9 Chloride 105 Carbon Dioxide 27 Anion Gap 8 BUN 21 H Creatinine 1.65 H Est GFR ( Amer) 50 L Est GFR (Non-Af Amer) 41 L Glucose 114 H Calcium 9.6 Magnesium 2.0 10/13/17 10/13/17 10/14/17 23:06 23:06 04:52 Creatine Kinase 51 L 48 L CK-MB (CK-2) 1.24 Troponin I 0.089 10/14/17 04:52 Creatine Kinase CK-MB (CK-2) 1.24 Troponin I 0.091 Impressions: Chest X-Ray 10/13/17 12:25 IMPRESSION: Mild chronic lung changes with no acute cardiopulmonary disease. Assessment & Plan - Diagnosis (1) Chest pain Qualifiers: Chest pain type: unspecified Qualified Code(s): R07.9 - Chest pain, unspecified Is this a current diagnosis for this admission?: Yes Plan: Cardiology consultation and stress testing per cardiology. Initiate therapy with pitavastatin as per recommendation by Dr. Gayle. Observe overnight and plan discharge in a.m. (2) COPD (chronic obstructive pulmonary disease) Is this a current diagnosis for this admission?: Yes Plan: Continue home pulmonary medications and treatments. Monitor pulmonary status throughout hospital course. (3) Chronic kidney disease, stage III (moderate) Is this a current diagnosis for this admission?: Yes Plan: Monitor renal status throughout hospital course. (4) Diabetes mellitus Qualifiers: Diabetes mellitus type: type 2 Diabetes mellitus fci insulin use: without remote computer terminal operator use Diabetes mellitus complication status: with kidney complications Diabetes mellitus complication detail: with chronic kidney disease Chronic kidney disease stage: stage 3 (moderate) Qualified Code(s): E11.22 - Type 2 diabetes mellitus with diabetic chronic kidney disease Is this a current diagnosis for this admission?: Yes Plan: Monitor blood sugar status with before meals and at bedtime blood sugars throughout hospital course. Check hemoglobin A1c. (5) GERD (gastroesophageal reflux disease) Is this a current diagnosis for this admission?: Yes Plan: Continue home medications throughout hospital course. Observe for complications or worsening of this disease process. (6) Hypertension Is this a current diagnosis for this admission?: Yes Plan: Continue home antihypertensive regimen. Monitor blood pressure throughout hospital course. (7) Hypothyroid Is this a current diagnosis for this admission?: Yes Plan: Continue home thyroid replacement. Monitor thyroid lab work during hospital course. - Time Time Spent with patient: 25-34 minutes Medications reviewed and adjusted accordingly: Yes Anticipated discharge: Home Within: within 24 hours
--- NOTE | 2017-10-15 17:24 | PDOC DISCHARGE SUMMARY ---
General - Admit/Disc Date/PCP Admission Date/Primary Care Provider: 10/13/17 17:10 DEREK AMAYA MD Discharge Date: 10/15/17 - Discharge Diagnosis (1) Chest pain Is this a current diagnosis for this admission?: Yes Summary: Frank his chest pain resolved while he was in the emergency room to have some pressure in his upper chest throughout the first 24 hours of his hospital course. He had a Cardiolite stress test which he tolerated well and revealed nonsurgical coronary artery disease. Recommendations for maximal medical management were made by Dr. Gayle. (2) COPD (chronic obstructive pulmonary disease) Is this a current diagnosis for this admission?: Yes Summary: Frank his COPD has remained stable and well-controlled on his current home regimen throughout his hospital course. (3) Chronic kidney disease, stage III (moderate) Is this a current diagnosis for this admission?: Yes Summary: Frank is chronic renal insufficiency has remained stable and well controlled throughout his hospital course. (4) Diabetes mellitus Is this a current diagnosis for this admission?: Yes Summary: Lucías prediabetes/metabolic syndrome is well controlled with diet alone. (5) GERD (gastroesophageal reflux disease) Is this a current diagnosis for this admission?: Yes Summary: Mr. Vizcarra gastroesophageal reflux has been well controlled with his usual medications during his hospital course. (6) Hypertension Is this a current diagnosis for this admission?: Yes Summary: Mr. Vizcarra hypertension has been well-controlled with his current medical regimen and the addition of metoprolol and Imdur at Dr. Gayle's direction. (7) Hypothyroid Is this a current diagnosis for this admission?: Yes Summary: Mr. Vizcarra hypothyroidism has been well controlled with his usual home dose of levothyroxine throughout his hospital course. - Additional Information Discharge Diet: Cardiac Discharge Activity: Activity As Tolerated, Walk Frequently Prescriptions: Clopidogrel Bisulfate [Plavix 75 mg Tablet] 75 mg PO DAILY 30 Days #30 tablet Isosorbide Mononitrate [Imdur 60 mg Tablet.er] 60 mg PO QPM 30 Days #30 tab.er.24h Metoprolol Succinate 100 mg PO BID 30 Days #60 tab.er.24h Ranolazine [Ranexa 500 mg Tab.sr] 500 mg PO BID #60 tab.sr.12h Home Medications: Alfuzosin HCl [Uroxatral SR 10 mg Tablet] 10 mg PO QHS 12/01/12 Aspirin [Aspirin 325 mg Tablet] 325 mg PO QHS 12/01/12 Atenolol [Tenormin 50 mg Tablet] 100 mg PO QHS 12/01/12 Carboxymethylcellulose Sodium [Refresh Tears Drops] 1 dropperful OU Q4HP PRN Cetirizine HCl [Aller-Irasema] 10 mg PO DAILY 12/01/12 Ciclopirox/Skin Cleanser No.28 [Ciclodan 0.77% Cream Kit] 1 applic TOP BID 12/01 Clobetasol Propionate/Emoll [Clobetasol Emollient 0.05% Crm] 1 applic TOP QHS Colesevelam HCl [Welchol 625 mg Tablet] 1,875 mg PO BID 12/01/12 Cyanocobalamin (Vitamin B-12) [Vitamin B-12] 500 mcg PO QHS 12/01/12 Finasteride [Proscar 5 mg Tablet] 5 mg PO QPM 12/01/12 Ketoconazole [Nizoral 2% Shampoo 120 ml Bottle] 1 applic TOP Q2D PRN 12/01/12 Levothyroxine Sodium [Synthroid] 125 mcg PO Q6AM 12/01/12 Rabeprazole Sodium [Aciphex] 20 mg PO DAILY 12/01/12 Saw Manning 450 mg PO DAILY 12/01/12 Alprostadil [Edex] 20 mcg IM ASDIR PRN 10/31/15 Diclofenac Sodium [Voltaren] 4 gm TP Q4HP PRN 10/31/15 Furosemide [Lasix] 40 mg PO QAM 10/31/15 Glimepiride [Amaryl] 2 mg PO DAILY 10/31/15 Magnesium Oxide 400 mg PO Q8 10/31/15 Methocarbamol 500 mg PO Q6HP PRN 10/31/15 Mineral Oil/Petrolatum,White [Absorbase Ointment] 1 applic TP QID 10/31/15 [place]-3 Acid Ethyl Esters [Lovaza 1 gm Capsule] 2 gm PO BID 10/31/15 Telmisartan [Micardis 80 mg Tablet] 80 mg PO DAILY 11/01/15 Cholecalciferol (Vitamin D3) [Vitamin D3] 5,000 unit PO DAILY 10/13/17 Ergocalciferol (Vitamin D2) [Drisdol 50,000 unit (1.25MG) Capsule] 50,000 unit PO WE@1000 10/13/17 Furosemide [Lasix 20 mg Tablet] 20 mg PO DAILY@1400 10/13/17 Meloxicam [Mobic] 15 mg PO DAILYP PRN 10/13/17 Olopatadine HCl [Pataday] 1 drop OU DAILYP PRN 10/13/17 Clopidogrel Bisulfate [Plavix 75 mg Tablet] 75 mg PO DAILY 30 Days #30 tablet Isosorbide Mononitrate [Imdur 60 mg Tablet.er] 60 mg PO QPM 30 Days #30 tab.er.24h 10/15/17 Metoprolol Succinate 100 mg PO BID 30 Days #60 tab.er.24h 10/15/17 Ranolazine [Ranexa 500 mg Tab.sr] 500 mg PO BID #60 tab.sr.12h 10/15/17 History of Present Illness History of Present Illness: FRANK SUMMERS is a 72 year old male who presented to the emergency room with a history of chest pain beginning on the afternoon of the day prior to his admission. He states that he was walking from [facility] to his car which was parked a fair distance away when he developed severe dyspnea, profuse diaphoresis, and a severe, crushing pressure type, anterior, substernal, chest pain without radiation. The pain was constant for a couple of minutes and and then subsided over approximately 10-15 minutes with rest. He developed a similar episode on the morning of admission when he had taken out some trash from the house to the curb. This episode again involved severe dyspnea and severe chest pressure but less prominent diaphoresis. The pain was again nonradiating. He denies prior episodes and has identified rest is not ameliorating factor and exertion as a exacerbating factor for his pain. He denies any recent nausea, vomiting or diarrhea and has had no fever or chills. He additionally denies palpitations, cough, sputum production, hemoptysis, rash and syncope. His past medical history is positive for hyperlipidemia, hypertension, hypothyroidism, osteoarthritis, chronic renal failure and prediabetes. He is being admitted for cardiology evaluation. Dr. Gayle has been consulted. Hospital Course Hospital Course: 10/14/17: His pain is resolved but he still feels "like there is some pressure in there". He denies nausea, diaphoresis, dyspnea and cough. He will be getting a 2 day stress study done tomorrow. 10/15/17: Frank states that he is not having any chest pain and had no chest pain or discomfort, including the pressure that he had been having yesterday, with his stress test today. He denies nausea, vomiting, dyspnea, diaphoresis, palpitations, lightheadedness and syncope. His stress test shows no evidence of acute ischemia or injury. The degree of coronary artery disease seen on his stress test suggests that medical management would be most appropriate and this will be undertaken therapy initiated here in the hospital. He will be discharged to home today. Physical Exam Vital Signs: Temp Pulse Resp BP Pulse Ox 97.7 F 71 20 169/67 H 96 10/15/17 12:44 10/15/17 12:44 10/15/17 12:44 10/15/17 12:44 10/15/17 12:44 Intake & Output 10/14/17 10/15/17 10/16/17 06:59 06:59 06:59 Intake Total 300 1137 120 Output Total 500 750 Balance -200 387 120 Weight 105.9 kg 104.7 kg General appearance: PRESENT: no acute distress, cooperative, obese Head exam: PRESENT: atraumatic, normocephalic Eye exam: PRESENT: conjunctiva pink. ABSENT: conjunctival injection Ear exam: PRESENT: normal external ear exam. ABSENT: drainage Mouth exam: PRESENT: moist, neck supple Neck exam: ABSENT: thyromegaly, tracheal deviation Respiratory exam: PRESENT: clear to auscultation shahla, symmetrical, unlabored - [id number] Cardiovascular exam: PRESENT: RRR. ABSENT: clicks, gallop, rubs Vascular exam: PRESENT: normal capillary refill. ABSENT: pallor GI/Abdominal exam: PRESENT: [place] [address], soft Extremities exam: ABSENT: joint swelling, pedal edema, tenderness Musculoskeletal exam: PRESENT: full ROM, normal inspection Neurological exam: PRESENT: alert, awake, oriented to person, oriented to place , oriented to time, oriented to situation, CN II-XII grossly intact. ABSENT: motor sensory deficit Psychiatric exam: PRESENT: appropriate affect, normal mood Skin exam: ABSENT: jaundice, rash, urticaria Results Laboratory Results: 10/15/17 06:29 10/15/17 06:29 10/15/17 10/15/17 06:29 06:29 WBC 12.0 H RBC 4.95 Hgb 14.4 Hct 43.1 MCV 87 MCH 29.2 MCHC 33.5 RDW 14.0 Plt Count 167 Sodium 139.8 Potassium 4.9 Chloride 105 Carbon Dioxide 27 Anion Gap 8 BUN 21 H Creatinine 1.65 H Est GFR ( Amer) 50 L Est GFR (Non-Af Amer) 41 L Glucose 114 H Calcium 9.6 Magnesium 2.0 10/13/17 10/13/17 10/14/17 23:06 23:06 04:52 Creatine Kinase 51 L 48 L CK-MB (CK-2) 1.24 Troponin I 0.089 10/14/17 04:52 Creatine Kinase CK-MB (CK-2) 1.24 Troponin I 0.091 Impressions: Chest X-Ray 10/13/17 12:25 IMPRESSION: Mild chronic lung changes with no acute cardiopulmonary disease. Qualifiers - * PATIENT BEING DISCHARGED WITH ANY OF THE FOLLOWING DIAGNOSIS: No Plan Time Spent: Greater than 30 Minutes
[2017-10-15] MEDS ORDERED: METOPROLOL SUCCINATE 50 MG TAB.SR.24H PO SCH (18:00)
[2017-10-15] MEDS ORDERED: ISOSORBIDE MONONITRATE 60 MG TAB.ER.24H PO SCH (18:00)
[2017-10-15] MEDS ORDERED: RANOLAZINE 500 MG TAB.SR.12H PO SCH (18:00)
[2017-10-15 18:12] VITALS: BP 138/42
[2017-10-15] MEDS: FINASTERIDE 5 MG TABLET PO SCH (18:13)
--- NOTE | 2017-10-15 19:31 | PDOC PROGRESS REPORT ---
Subjective Progress Note for:: 10/15/17 Subjective:: Nuclear stress test results were reviewed with the patient in detail. Based on his chronic renal insufficiency, anaphylactic and severe allergy to contrast agent, have recommended medical management with good blood pressure control, stress reduction, weight reduction and treatment of sleep apnea if present. Patient seems to be doing better with gradual improvement. Patient complains of chest tightness and shortness of breath on exertion. 2D echo had shown normal LVEF. Patient denying any PND, orthopnea. Patient denied any sustained palpitations, dizziness, syncope, near syncope. Patient denying any fever chills. Patient denying any other significant discomfort. Patient is maintaining sinus rhythm. Review of systems: Rest review of systems negative. Medications: Medications have been reviewed. Reason For Visit: CHEST PAIN Physical Exam Vital Signs: Temp Pulse Resp BP Pulse Ox 98.8 F 64 20 138/42 H 99 10/15/17 18:44 10/15/17 18:44 10/15/17 18:44 10/15/17 18:44 10/15/17 18:44 Intake & Output 10/14/17 10/15/17 10/16/17 06:59 06:59 06:59 Intake Total 300 1137 715 Output Total 500 750 200 Balance -200 387 515 Weight 105.9 kg 104.7 kg Exam: GENERAL: well-nourished and in no acute distress. Alert and oriented x3 HEAD: Atraumatic, normocephalic. EYES: Pupils equal round and reactive to light, extraocular movements intact, sclera anicteric, conjunctiva are normal. ENT: TMs normal, nares patent, oropharynx clear without exudates. Moist mucous membranes. No oral ulcerations or bleeding gums noted NECK: supple without lymphadenopathy. Trachea is central. No cervical or axillary lymphadenopathy noted. Carotids are 2+, JVD WNL LUNGS: Respiration seems nonlabored, no significant accessory muscle action noted. Breath sounds clear to auscultation bilaterally and equal noted. No wheezes rales or rhonchi noted. No significant dullness noted on percussion. CHEST: Palpation of the chest wall shows no significant chest wall tenderness. HEART: [place] FIELD RECORDER, No PSH, 1/6 ARGENIS aortic area, 1/6 campbell systolic murmur mitral area, no rubs, no gallops. ABDOMEN: Soft, no significant tenderness appreciated, normoactive bowel sounds. No guarding, no rebound. No rigidity noted . No masses appreciated. EXTREMITIES: Pedal pulses are 1-2+, no calf tenderness noted. No clubbing or cyanosis. negative pedal edema noted NEUROLOGICAL: Focused neurological exam showed no significant neurologic deficit. Normal speech, no focal weakness appreciated. PSYCH: Normal mood, normal affect. Judgment and insight within normal limits. SKIN: No significant ecchymosis, skin is noted to be warm. MUSCULOSKELETAL EXAM: No significant acute joint swelling noted. Results Laboratory Results: 10/15/17 06:29 10/15/17 06:29 10/15/17 10/15/17 06:29 06:29 WBC 12.0 H RBC 4.95 Hgb 14.4 Hct 43.1 MCV 87 MCH 29.2 MCHC 33.5 RDW 14.0 Plt Count 167 Sodium 139.8 Potassium 4.9 Chloride 105 Carbon Dioxide 27 Anion Gap 8 BUN 21 H Creatinine 1.65 H Est GFR ( Amer) 50 L Est GFR (Non-Af Amer) 41 L Glucose 114 H Calcium 9.6 Magnesium 2.0 10/13/17 10/13/17 10/14/17 23:06 23:06 04:52 Creatine Kinase 51 L 48 L CK-MB (CK-2) 1.24 Troponin I 0.089 10/14/17 04:52 Creatine Kinase CK-MB (CK-2) 1.24 Troponin I 0.091 EKG Comments: Shows sinus rhythm. No sustained tachycardia or bradycardia noted. Impressions: Chest X-Ray 10/13/17 12:25 IMPRESSION: Mild chronic lung changes with no acute cardiopulmonary disease. Assessment & Plan - Diagnosis (1) Chest pain Qualifiers: Chest pain type: unspecified Qualified Code(s): R07.9 - Chest pain, unspecified Is this a current diagnosis for this admission?: Yes (2) COPD (chronic obstructive pulmonary disease) Is this a current diagnosis for this admission?: Yes (3) Chronic kidney disease, stage III (moderate) Is this a current diagnosis for this admission?: Yes (4) Diabetes mellitus Qualifiers: Diabetes mellitus type: type 2 Diabetes mellitus prison insulin use: without prison use Diabetes mellitus complication status: with kidney complications Diabetes mellitus complication detail: with chronic kidney disease Chronic kidney disease stage: stage 3 (moderate) Qualified Code(s): E11.22 - Type 2 diabetes mellitus with diabetic chronic kidney disease; N18.3 - Chronic kidney disease, stage 3 (moderate); N18.3 - Chronic kidney disease, stage 3 (moderate); N18.3 - Chronic kidney disease, stage 3 (moderate) Is this a current diagnosis for this admission?: Yes (5) GERD (gastroesophageal reflux disease) Is this a current diagnosis for this admission?: Yes (6) Hypertension Is this a current diagnosis for this admission?: Yes - Notes Notes: Chest pain: Nuclear stress test results were reviewed. It showed a small area of mild ischemia in the inferior wall. Have recommended maximizing medical therapy as initial treatment plan and if patient does not respond then will need heart catheterization. This was explained to the patient. However when seen in the afternoon he wanted to be discharged claiming that he has had no further chest pain. Patient was given the option to follow with me as an outpatient.. Have recommended to continue patient on with aspirin, Plavix, statins, beta blockers, DEMETRIUS inhibitor/ARB's. Patient placed on Imdur. Discussed that if he continues with recurrent chest pain or significant EKG changes will then end up transferring him for heart catheterization but otherwise due to his comorbid diagnosis of significant allergy to x-ray dye and also chronic kidney disease, initial trial of medical management is satisfactory option. COPD: Currently stable. Continue current therapy. Chronic kidney disease: Avoid nonsteroidal anti-inflammatory medications and also contrast agent if possible. Diabetes: Have recommended weight loss, carbohydrate restriction. Recommend good control of blood sugar but avoid any hyper or hypoglycemia. Gastroesophageal reflux disease: Continue Pepcid at twice dose. Hypertension: Blood pressure has been somewhat difficult to control. Patient has multiple allergies. Will try to get it under better control. Patient claims that stress in the hospital is making his blood pressure go up. It is usually better controlled at home. Patient worried about his 's condition. - Time Time with patient: Greater than 35 minutes - Significant time spent discussing management of CAD and also discussing results of nuclear stress test and also 2D echocardiogram. More than 50% of the time spent coordinating care, discussing management plans with involved caregivers. Management plans discussed with involved personnels. Medical decision making was of moderate to high complexity, patient's has multiple comorbidities. Medications reviewed and adjusted accordingly: Yes
[2017-10-15] MEDS ORDERED: ATORVASTATIN CALCIUM 10 MG TABLET PO SCH (22:00)
[2017-10-19] MEDS ORDERED: ERGOCALCIFEROL (VITAMIN D2) 50000 UNIT (1.25 MG) CAPSULE PO SCH (10:00)
== END 2017-10-15 19:00 | disposition home or self-care (01) ==
LOC: ER 11:06 → OBSVTOIN 17:10 → EH 17:10 → INTOOBSV 17:10 → 3S 20:48
PROVIDERS: ADMIT Internal Medicine; ATTEND Internal Medicine
DX: R07.89 Other chest pain (principal); J44.9 Chronic obstructive pulmonary disease, unspecified; E11.22 Type 2 diabetes mellitus with diabetic chronic kidney disease; I12.9 Hypertensive chronic kidney disease with stage 1 through stage 4 chronic kidney disease, or unspecified chronic kidney disease; N18.3 Chronic kidney disease, stage 3 (moderate); E88.81 Metabolic syndrome and other insulin resistance; K21.9 Gastro-esophageal reflux disease without esophagitis; E03.9 Hypothyroidism, unspecified; M19.90 Unspecified osteoarthritis, unspecified site; E78.5 Hyperlipidemia, unspecified; E66.9 Obesity, unspecified; R60.0 Localized edema; Z79.899 Other long term (current) drug therapy; Z79.82 Long term (current) use of aspirin; Z88.8 Allergy status to other drugs, medicaments and biological substances; Z91.041 Radiographic dye allergy status; Z87.891 Personal history of nicotine dependence; Z82.49 Family history of ischemic heart disease and other diseases of the circulatory system; Z68.35 Body mass index [BMI] 35.0-35.9, adult; Z87.892 Personal history of anaphylaxis
CPT/HCPCS: 93005 ×2; 99285; 36415 ×3; 82553 ×2; 82962 ×3; 82550 ×2; 83735 ×2; 84443; 85025; 85027 ×2; 80048 ×2; 80053; 84484 ×2; 83036; 93306; 93017; 71045; 78452; 93010 ×2; A9500; A9270 ×40; J2785; J1644 ×3; J0360; J0706; J3490 ×4; Q9969

== ENCOUNTER → 2017-11-14 | Outpatient (CLI) | payer MEDICARE, OTHER ==
[2017-11-14 08:09] LABS: HEMATOCRIT 38.4 % (37.9-51.0); HEMOGLOBIN 13.1 g/dL (13.5-17.0); MEAN CORPUSCULAR HEMOGLOBIN 29.7 pg (27.0-33.4); MEAN CORPUSCULAR HGB CONC 34.1 g/dL (32.0-36.0); MEAN CORPUSCULAR VOLUME 87 fl (80-97); PLATELET COUNT 159 10^3/uL (150-450); RED BLOOD COUNT 4.41 10^6/uL (4.35-5.55); WHITE BLOOD COUNT 6.4 10^3/uL (4.0-10.5)
== END ==
LOC: OD 07:33
PROVIDERS: ATTEND Physician Assistant
DX: E29.1 Testicular hypofunction (principal); D40.0 Neoplasm of uncertain behavior of prostate; R53.83 Other fatigue
CPT/HCPCS: 36415; 84153; 84403; 85027

== ENCOUNTER → 2018-02-13 | Outpatient (CLI) | payer MEDICARE, OTHER ==
[2018-02-13 09:39] LABS: HEMATOCRIT 39.5 % (37.9-51.0); HEMOGLOBIN 13.2 g/dL (13.5-17.0); MEAN CORPUSCULAR HEMOGLOBIN 29.9 pg (27.0-33.4); MEAN CORPUSCULAR HGB CONC 33.5 g/dL (32.0-36.0); MEAN CORPUSCULAR VOLUME 89 fl (80-97); PLATELET COUNT 164 10^3/uL (150-450); RED BLOOD COUNT 4.42 10^6/uL (4.35-5.55); RED CELL DISTRIBUTION WIDTH 14.5 % (11.5-14.0); WHITE BLOOD COUNT 6.9 10^3/uL (4.0-10.5)
== END ==
LOC: OD 08:03
PROVIDERS: ATTEND Physician Assistant
DX: E29.1 Testicular hypofunction (principal); D40.0 Neoplasm of uncertain behavior of prostate; N52.9 Male erectile dysfunction, unspecified
CPT/HCPCS: 36415; 84153; 84403; 85027

== ENCOUNTER → 2018-03-13 | Outpatient (CLI) | payer MEDICARE, OTHER ==
[2018-03-13 08:41] LABS: HEMATOCRIT 38.7 % (37.9-51.0); HEMOGLOBIN 13.3 g/dL (13.5-17.0); MEAN CORPUSCULAR HEMOGLOBIN 30.3 pg (27.0-33.4); MEAN CORPUSCULAR HGB CONC 34.3 g/dL (32.0-36.0); MEAN CORPUSCULAR VOLUME 89 fl (80-97); PLATELET COUNT 166 10^3/uL (150-450); RED BLOOD COUNT 4.37 10^6/uL (4.35-5.55); RED CELL DISTRIBUTION WIDTH 14.5 % (11.5-14.0); WHITE BLOOD COUNT 6.6 10^3/uL (4.0-10.5)
[2018-03-13 09:11] LABS: ANION GAP 6 (5-19); BLOOD UREA NITROGEN 20 mg/dL (7-20); CALCIUM 9.2 mg/dL (8.4-10.2); CARBON DIOXIDE 28 mmol/L (22-30); CHLORIDE 104 mmol/L (98-107); GLUCOSE 188 mg/dL (75-110); SODIUM 138.4 mmol/L (137-145)
[2018-03-13 10:40] LABS: APPEARANCE,URINE CLEAR; BILIRUBIN,URINE NEGATIVE (NEGATIVE); COLOR,URINE YELLOW; GLUCOSE, URINE NEGATIVE (NEGATIVE); KETONES,URINE NEGATIVE (NEGATIVE); LEUKOCYTE ESTERASE,URINE NEGATIVE (NEGATIVE); NITRITE,URINE NEGATIVE (NEGATIVE); PROTEIN,URINE NEGATIVE (NEGATIVE); URINE SPECIFIC GRAVITY 1.005; UROBILINOGEN,URINE NEGATIVE mg/dL (<2.0)
== END ==
LOC: OD 07:53
PROVIDERS: ATTEND Internal Medicine Nephrology
DX: I12.9 Hypertensive chronic kidney disease with stage 1 through stage 4 chronic kidney disease, or unspecified chronic kidney disease (principal); E11.22 Type 2 diabetes mellitus with diabetic chronic kidney disease; N18.3 Chronic kidney disease, stage 3 (moderate)
CPT/HCPCS: 36415; 80048; 81001; 83735; 85027

== ENCOUNTER → 2018-03-27 | Outpatient (CLI) | payer MEDICARE, OTHER | LOC: OD 07:48 | PROVIDERS: ATTEND Physician Assistant | DX: E29.1 Testicular hypofunction (principal) | CPT/HCPCS: 36415; 84403 ==

== ENCOUNTER → 2018-07-07 | Outpatient (CLI) | payer MEDICARE, OTHER ==
--- NOTE | 2018-07-07 13:51 | RADIOLOGY REPORT (SQ) ---
EXAM DESCRIPTION: CHEST PA/LATERAL COMPLETED DATE/TIME: 07/07/2018 12:02 pm REASON FOR STUDY: PNEUMONIA, UNSPECIFIED ORGANISM COMPARISON: 01/06/2016 EXAM PARAMETERS: NUMBER OF VIEWS: two views TECHNIQUE: Digital Frontal and Lateral radiographic views of the chest acquired. RADIATION DOSE: NA LIMITATIONS: none FINDINGS: LUNGS AND PLEURA: Patchy vague opacity suggested at the right lung base, may represent in filtrate. The left lung is clear. Findings of COPD, stable. No pneumothorax or pleural effusion. MEDIASTINUM AND HILAR STRUCTURES: No masses or contour abnormalities. HEART AND VASCULAR STRUCTURES: Heart normal size. No evidence for failure. BONES: No acute findings. HARDWARE: None in the chest. OTHER: No other significant finding. IMPRESSION: 1. Patchy vague opacity suggested at the right lung base, may represent infiltrate. 2. Findings of COPD, stable. TECHNICAL DOCUMENTATION: JOB ID: [id number] [employer]- All Rights Reserved Reading location - IP/workstation name: [email or web address]
== END ==
LOC: OD 11:34
PROVIDERS: ATTEND Internal Medicine
DX: J18.9 Pneumonia, unspecified organism (principal); J44.9 Chronic obstructive pulmonary disease, unspecified
CPT/HCPCS: 71046

== ENCOUNTER → 2018-07-17 | Outpatient (CLI) | payer MEDICARE, OTHER ==
[2018-07-17 15:27] LABS: HEMATOCRIT 35.7 % (37.9-51.0); HEMOGLOBIN 12.2 g/dL (13.5-17.0); MEAN CORPUSCULAR HEMOGLOBIN 29.6 pg (27.0-33.4); MEAN CORPUSCULAR HGB CONC 34.2 g/dL (32.0-36.0); MEAN CORPUSCULAR VOLUME 87 fl (80-97); PLATELET COUNT 260 10^3/uL (150-450); RED BLOOD COUNT 4.12 10^6/uL (4.35-5.55); RED CELL DISTRIBUTION WIDTH 13.5 % (11.5-14.0); WHITE BLOOD COUNT 7.9 10^3/uL (4.0-10.5)
== END ==
LOC: OD 13:54
PROVIDERS: ATTEND Physician Assistant
DX: D40.0 Neoplasm of uncertain behavior of prostate (principal); E29.1 Testicular hypofunction
CPT/HCPCS: 36415; 84153; 84403; 85027

== ENCOUNTER → 2018-09-18 | Outpatient (CLI) | payer MEDICARE, OTHER ==
[2018-09-18 08:51] LABS: HEMATOCRIT 38.1 % (37.9-51.0); MEAN CORPUSCULAR HEMOGLOBIN 29.4 pg (27.0-33.4); MEAN CORPUSCULAR HGB CONC 34.1 g/dL (32.0-36.0); MEAN CORPUSCULAR VOLUME 86 fl (80-97); PLATELET COUNT 185 10^3/uL (150-450); RED BLOOD COUNT 4.43 10^6/uL (4.35-5.55); RED CELL DISTRIBUTION WIDTH 14.1 % (11.5-14.0); WHITE BLOOD COUNT 5.8 10^3/uL (4.0-10.5)
[2018-09-18 08:54] LABS: APPEARANCE,URINE CLEAR; BILIRUBIN,URINE NEGATIVE (NEGATIVE); COLOR,URINE YELLOW; GLUCOSE, URINE NEGATIVE (NEGATIVE); KETONES,URINE NEGATIVE (NEGATIVE); LEUKOCYTE ESTERASE,URINE NEGATIVE (NEGATIVE); NITRITE,URINE NEGATIVE (NEGATIVE); PROTEIN,URINE NEGATIVE (NEGATIVE); URINE SPECIFIC GRAVITY 1.018; UROBILINOGEN,URINE NEGATIVE mg/dL (<2.0)
[2018-09-18 09:12] LABS: ANION GAP 9 (5-19); BLOOD UREA NITROGEN 21 mg/dL (7-20); CALCIUM 9.5 mg/dL (8.4-10.2); CARBON DIOXIDE 24 mmol/L (22-30); CHLORIDE 106 mmol/L (98-107); GLUCOSE 117 mg/dL (75-110); POTASSIUM 4.7 mmol/L (3.6-5.0)
== END ==
LOC: OD 07:47
PROVIDERS: ATTEND Internal Medicine Nephrology
DX: E11.22 Type 2 diabetes mellitus with diabetic chronic kidney disease (principal); N18.3 Chronic kidney disease, stage 3 (moderate); I50.9 Heart failure, unspecified; E83.42 Hypomagnesemia
CPT/HCPCS: 36415; 80048; 81001; 85027

== ENCOUNTER → 2018-10-16 | Outpatient (CLI) | payer MEDICARE, OTHER ==
[2018-10-16 09:41] LABS: HEMATOCRIT 37.2 % (37.9-51.0); HEMOGLOBIN 12.5 g/dL (13.5-17.0); MEAN CORPUSCULAR HEMOGLOBIN 29.2 pg (27.0-33.4); MEAN CORPUSCULAR HGB CONC 33.6 g/dL (32.0-36.0); MEAN CORPUSCULAR VOLUME 87 fl (80-97); PLATELET COUNT 172 10^3/uL (150-450); RED BLOOD COUNT 4.28 10^6/uL (4.35-5.55); WHITE BLOOD COUNT 6.2 10^3/uL (4.0-10.5)
== END ==
LOC: OD 08:44
PROVIDERS: ATTEND Specialist
DX: E29.1 Testicular hypofunction (principal); D40.0 Neoplasm of uncertain behavior of prostate; R53.83 Other fatigue
CPT/HCPCS: 36415; 84153; 84403; 85027

== ENCOUNTER → 2019-01-15 | Outpatient (CLI) | payer MEDICARE, OTHER ==
[2019-01-15 10:51] LABS: HEMATOCRIT 36.7 % (37.9-51.0); HEMOGLOBIN 12.6 g/dL (13.5-17.0); MEAN CORPUSCULAR HEMOGLOBIN 30.1 pg (27.0-33.4); MEAN CORPUSCULAR HGB CONC 34.2 g/dL (32.0-36.0); MEAN CORPUSCULAR VOLUME 88 fl (80-97); PLATELET COUNT 170 10^3/uL (150-450); RED BLOOD COUNT 4.17 10^6/uL (4.35-5.55); WHITE BLOOD COUNT 8.1 10^3/uL (4.0-10.5)
== END ==
LOC: OD 10:08
PROVIDERS: ATTEND Specialist
DX: E29.1 Testicular hypofunction (principal); D40.0 Neoplasm of uncertain behavior of prostate
CPT/HCPCS: 36415; 82670; 84153; 84403; 85027

== ENCOUNTER → 2019-03-23 | Outpatient (CLI) | payer MEDICARE, OTHER | LOC: OD 09:59 | PROVIDERS: ATTEND Physician Assistant Medical | DX: N18.3 Chronic kidney disease, stage 3 (moderate) (principal); E83.2 Disorders of zinc metabolism | CPT/HCPCS: 36415; 83735 ==

== ENCOUNTER → 2019-04-23 | Outpatient (CLI) | payer MEDICARE, OTHER ==
[2019-04-23 10:44] LABS: HEMATOCRIT 36.6 % (37.9-51.0); HEMOGLOBIN 12.7 g/dL (13.5-17.0); MEAN CORPUSCULAR HEMOGLOBIN 30.2 pg (27.0-33.4); MEAN CORPUSCULAR HGB CONC 34.6 g/dL (32.0-36.0); MEAN CORPUSCULAR VOLUME 87 fl (80-97); PLATELET COUNT 195 10^3/uL (150-450); RED CELL DISTRIBUTION WIDTH 13.4 % (11.5-14.0); WHITE BLOOD COUNT 8.7 10^3/uL (4.0-10.5)
== END ==
LOC: OD 09:40
PROVIDERS: ATTEND Specialist
DX: E29.1 Testicular hypofunction (principal); D40.0 Neoplasm of uncertain behavior of prostate
CPT/HCPCS: 36415; 84153; 84403; 85027

== ENCOUNTER → 2019-07-17 | Outpatient (CLI) | payer MEDICARE, OTHER ==
[2019-07-17 13:35] LABS: ANION GAP 7 (5-19); BLOOD UREA NITROGEN 38 mg/dL (7-20); CALCIUM 9.5 mg/dL (8.4-10.2); CARBON DIOXIDE 26 mmol/L (22-30); CHLORIDE 104 mmol/L (98-107); GLUCOSE 148 mg/dL (75-110); POTASSIUM 4.3 mmol/L (3.6-5.0)
== END ==
LOC: OD 12:42
PROVIDERS: ATTEND Internal Medicine Nephrology
DX: N18.3 Chronic kidney disease, stage 3 (moderate) (principal)
CPT/HCPCS: 36415; 80048

== ENCOUNTER → 2019-08-20 | Outpatient (CLI) | payer MEDICARE, OTHER ==
[2019-08-20 10:19] LABS: HEMATOCRIT 33.2 % (37.9-51.0); HEMOGLOBIN 11.6 g/dL (13.5-17.0); MEAN CORPUSCULAR HEMOGLOBIN 30.4 pg (27.0-33.4); MEAN CORPUSCULAR HGB CONC 34.9 g/dL (32.0-36.0); MEAN CORPUSCULAR VOLUME 87 fl (80-97); PLATELET COUNT 184 10^3/uL (150-450); RED BLOOD COUNT 3.82 10^6/uL (4.35-5.55); RED CELL DISTRIBUTION WIDTH 14.3 % (11.5-14.0); WHITE BLOOD COUNT 6.2 10^3/uL (4.0-10.5)
== END ==
LOC: OD 09:17
PROVIDERS: ATTEND Specialist
DX: E21.1 Secondary hyperparathyroidism, not elsewhere classified (principal); D40.0 Neoplasm of uncertain behavior of prostate
CPT/HCPCS: 36415; 84153; 84402; 85027

== ENCOUNTER → 2019-10-23 | Outpatient (CLI) | payer MEDICARE, OTHER ==
[2019-10-23 12:43] VITALS: BP 180/90
--- NOTE | 2019-10-23 12:43 | ER RDC ASSESSMENT REPORT ---
Intake - In the Last 14 days Have you traveled outside [place]?: No Have you been in close contact with someone CONFIRMED: No Worked in Healthcare?: No - Symptoms Subjective Fever([place] feverish): No Chills: No Muscule Aches: No Runny Nose: No Sore Throat: No Cough (New or worsening chronic cough): No Shortness of breath: No Nausea or Vomiting: No Headache: No Abdominal Pain: No Diarrhea(3 or more loose stools in last 24 hours): No - Do you have any of the following Chronic lung disease: Asthma or emphysema or COPD: No Cystic Fibrosis: No Diabetes: Yes High Blood Pressure: Yes Cardiovascular Disease: Yes Chronic Kidney Disease: No Chronic Liver Disease: No Chronic blood disorder like Sickle Cell Disease: No Weak immune system due to disease or medication: No Neurologic condition that limits movement: No Developmental delay - Moderate to Severe: No - Objective Temperature: 97.9 F Pulse Rate: 90 Respiratory Rate: 18 Blood Pressure: 180/90 - has not taken all his BP meds today O2 Sat by Pulse Oximetry: 96 Objective: Given above, testing performed: covid Disposition: Home; Selfcare General - General Stated Complaint: asymptomatic Mode of Arrival: Ambulatory - [facility] Notes: 74-year-old male presents to [facility] clinic for COVID-19 testing patient denies any known exposure with have a positive individual. Patient does report being symptomatic from 10/19-10/21 with cough and shortness of breath, fatigue, sinus congestion, night sweats, sinus drainage. He states all of those symptoms resolved on the and he is currently asymptomatic beyond a mild intermittent cough. - Related Data Allergies/Adverse Reactions: atorvastatin calcium [From Lipitor] Allergy (Verified 10/13/17 11:08) cephradine [From Velosef] Allergy (Verified 10/13/17 11:08) cerivastatin sodium [From Baycol] Allergy (Verified 10/13/17 11:08) chloramphenicol [From Chloromycetin] Allergy (Verified 10/13/17 11:08) chloramphenicol sod succ [From Chloromycetin] Allergy (Verified 10/13/17 11:08) cholera vaccine [Cholera Vaccine] Allergy (Verified 10/13/17 11:08) colestipol HCl [From Colestid] Allergy (Verified 10/13/17 11:08) doxycycline hyclate [From Vibramycin] Allergy (Verified 10/13/17 11:08) erythromycin base [Erythromycin Base] Allergy (Verified 10/13/17 11:08) ezetimibe [From Zetia] Allergy (Verified 10/13/17 11:08) fenofibrate,micronized [From Tricor] Allergy (Verified 10/13/17 11:08) lisinopril [Lisinopril] Allergy (Verified 10/13/17 11:08) nifedipine [From Adalat] Allergy (Verified 10/13/17 11:08) Penicillins Allergy (Verified 10/13/17 11:08) simvastatin [From Zocor] Allergy (Verified 10/13/17 11:08) sulfamethoxazole [From Septra] Allergy (Verified 10/13/17 11:08) terazosin [Terazosin] Allergy (Verified 10/13/17 11:08) trimethoprim [From Septra] Allergy (Verified 10/13/17 11:08) contrast IVP Dye Allergy (Uncoded 10/13/17 11:08) Past Medical History - General Information source: Patient - Social History Smoking Status: Former Smoker Family History: Hypertension - Past Medical History Cardiac Medical History: Reports: Hx Hypercholesterolemia, Hx Hypertension Denies: Hx Atrial Fibrillation, Hx Congestive Heart Failure, Hx Coronary Artery Disease, Hx DVT, Hx Heart Attack, Hx Peripheral Vascular Disease, Hx Pulmonary Embolism, Hx Heart Murmur Pulmonary Medical History: Reports: None EENT Medical History: Reports: None Neurological Medical History: Reports: None Endocrine Medical History: Reports: Hx Diabetes Mellitus Type 2 - Prediabetes, Hx Hypothyroidism Renal/ Medical History: Reports: None. Denies: Hx Peritoneal Dialysis Malignancy Medical History: Reports None GI Medical History: Reports: Hx Gastroesophageal Reflux Disease Musculoskeletal Medical History: Reports Hx Arthritis - Osteoarthritis Skin Medical History: Reports None Psychiatric Medical History: Reports: None Denies: Hx Depression Traumatic Medical History: Reports: None Infectious Medical History: Reports: None Past Surgical History: Reports: Hx Genitourinary Surgery - bladder rec onstruction, Hx Orthopedic Surgery Physical Exam - Vital signs Interpretation: Hypertensive Notes: Has not taken all of his blood pressure medications today - General General appearance: Appears well, Alert In distress: None Notes: PHYSICAL EXAMINATION: GENERAL: Well-appearing and in no acute distress. HEAD: Atraumatic, normocephalic. EYES: sclera anicteric, conjunctiva are normal. ENT: nares patent. Moist mucous membranes. NECK: Normal range of motion, supple without lymphadenopathy. LUNGS: No increased work of breathing. Lung sounds CTAB and equal. No wheezes rales or rhonchi. HEART: Regular rate and rhythm without murmurs. ABDOMEN: Soft, nontender, normal bowel sounds, no guarding. EXTREMITIES: Normal range of motion, no pitting edema. No cyanosis. NEUROLOGICAL: A&O x 3. Normal speech. PSYCH: Normal mood, normal affect. SKIN: Warm, Dry, normal turgor, no rashes or lesions noted Patient Education/Counseling Counseling/Education: Patient presents for COVID 19 testing after recent illness. Patient is asymptomatic at this time. Patient does not have emergency worrying symptoms such as difficulty breathing, shortness of breath, chest pain, pressure, confusion or cyanosis. Patient appears suitable for discharge as vital signs are stable and patient is nontoxic in appearance. Good return precautions have been discussed with patient, patient verbalized understanding and is agreeable with discharge plan of care at this time. Guidance for worsening S/SX: As a person under investigation for Covid 19, the [place] department of Health and Human Services, division of public health advises you to adhere to the following guidance until your test results are reported to you. If your test result is positive, you will receive additional information from your provider and your local health department at that time. Remain at home until you are cleared by the health provider or public health authorities. Keep a log of visitors to your home, notify any visitors to your home of your isolation status. If you plan to move to a new address or leave the [facility], notify the local health department in your County. Call your doctor or seek care if you have an urgent medical need. Before seeking medical care, call ahead to get instructions from the provider before arriving at the medical office clinic or hospital. Notify them that you are being tested for the virus that causes Covid 19 so that arrangements can be made, as necessary, to prevent transmission to others in the healthcare setting. Next, notify the local health department in your county. If a medical emergency arises and you need to call 911, inform the first responders that you are being tested for the virus that causes Covid 19. Next, notify the local health department in your county. RDC Discharge - Discharge Clinical Impression: Encounter for screening laboratory testing for COVID-19 virus Condition: Good Disposition: Home; Selfcare
== END ==
LOC: RDC 11:32
PROVIDERS: ATTEND Registered Nurse
DX: Z20.828 Contact with and (suspected) exposure to other viral communicable diseases (principal); R05 Cough; I10 Essential (primary) hypertension; E11.9 Type 2 diabetes mellitus without complications; E78.00 Pure hypercholesterolemia, unspecified; E03.9 Hypothyroidism, unspecified; M19.90 Unspecified osteoarthritis, unspecified site; K21.9 Gastro-esophageal reflux disease without esophagitis; Z88.0 Allergy status to penicillin; Z88.1 Allergy status to other antibiotic agents; Z88.2 Allergy status to sulfonamides; Z88.3 Allergy status to other anti-infective agents; Z88.7 Allergy status to serum and vaccine; Z88.8 Allergy status to other drugs, medicaments and biological substances; Z91.041 Radiographic dye allergy status; Z87.891 Personal history of nicotine dependence
CPT/HCPCS: U0003; C9803; 87635; 99201; 99211

== ENCOUNTER → 2019-10-29 | Outpatient (CLI) | payer MEDICARE, OTHER ==
--- NOTE | 2019-10-29 12:39 | RADIOLOGY REPORT (SQ) ---
EXAM DESCRIPTION: CHEST PA/LATERAL IMAGES COMPLETED DATE/TIME: 10/29/2019 12:16 pm REASON FOR STUDY: COUGH;SOB COMPARISON: 07/07/2018 EXAM PARAMETERS: NUMBER OF VIEWS: two views TECHNIQUE: Digital Frontal and Lateral radiographic views of the chest acquired. RADIATION DOSE: NA LIMITATIONS: none FINDINGS: LUNGS AND PLEURA: No opacities, masses or pneumothorax. No pleural effusion. MEDIASTINUM AND HILAR STRUCTURES: No masses or contour abnormalities. HEART AND VASCULAR STRUCTURES: Heart normal size. No evidence for failure. BONES: No acute findings. HARDWARE: None in the chest. OTHER: No other significant finding. IMPRESSION: NO SIGNIFICANT RADIOGRAPHIC FINDING IN THE CHEST. TECHNICAL DOCUMENTATION: JOB ID: [id number] [employer]- All Rights Reserved Reading location - IP/workstation name: [email or web address]
== END ==
LOC: OD 11:21
PROVIDERS: ATTEND Internal Medicine
DX: R05 Cough (principal); R06.02 Shortness of breath
CPT/HCPCS: 71046

== ENCOUNTER → 2019-11-19 | Outpatient (CLI) | payer MEDICARE, OTHER ==
[2019-11-19 13:19] LABS: MEAN CORPUSCULAR HEMOGLOBIN 29.3 pg (27.0-33.4); MEAN CORPUSCULAR HGB CONC 34.3 g/dL (32.0-36.0); MEAN CORPUSCULAR VOLUME 86 fl (80-97); PLATELET COUNT 194 10^3/uL (150-450); RED CELL DISTRIBUTION WIDTH 13.7 % (11.5-14.0)
== END ==
LOC: OD 12:00
PROVIDERS: ATTEND Specialist
DX: E29.1 Testicular hypofunction (principal); D40.0 Neoplasm of uncertain behavior of prostate
CPT/HCPCS: 36415; 84402; 85027

== ENCOUNTER → 2019-11-27 | Outpatient (CLI) | payer MEDICARE, OTHER ==
[2019-11-27 13:10] LABS: HEMATOCRIT 34.1 % (37.9-51.0); HEMOGLOBIN 12.2 g/dL (13.5-17.0); MEAN CORPUSCULAR HEMOGLOBIN 30.1 pg (27.0-33.4); MEAN CORPUSCULAR HGB CONC 35.7 g/dL (32.0-36.0); MEAN CORPUSCULAR VOLUME 84 fl (80-97); PLATELET COUNT 202 10^3/uL (150-450); RED BLOOD COUNT 4.04 10^6/uL (4.35-5.55); RED CELL DISTRIBUTION WIDTH 13.9 % (11.5-14.0)
[2019-11-27 13:14] LABS: APPEARANCE,URINE CLEAR; BILIRUBIN,URINE NEGATIVE (NEGATIVE); COLOR,URINE YELLOW; GLUCOSE, URINE NEGATIVE (NEGATIVE); KETONES,URINE NEGATIVE (NEGATIVE); LEUKOCYTE ESTERASE,URINE NEGATIVE (NEGATIVE); NITRITE,URINE NEGATIVE (NEGATIVE); PROTEIN,URINE NEGATIVE (NEGATIVE); URINE SPECIFIC GRAVITY 1.009; UROBILINOGEN,URINE NEGATIVE mg/dL (<2.0)
[2019-11-27 13:37] LABS: ALBUMIN 4.4 g/dL (3.5-5.0); ANION GAP 11 (5-19); BLOOD UREA NITROGEN 28 mg/dL (7-20); CALCIUM 9.6 mg/dL (8.4-10.2); CARBON DIOXIDE 25 mmol/L (22-30); CHLORIDE 96 mmol/L (98-107); GLUCOSE 141 mg/dL (75-110); PHOSPHORUS 3.1 mg/dL (2.5-4.5); POTASSIUM 4.6 mmol/L (3.6-5.0)
[2019-11-28 10:37] LABS: CREATININE URINE 90.1 mg/dL (Not Estab.)
== END ==
LOC: OD 11:52
PROVIDERS: ATTEND Internal Medicine Nephrology
DX: N18.30 Chronic kidney disease, stage 3 unspecified (principal); E83.42 Hypomagnesemia
CPT/HCPCS: 36415; 80069; 81001; 82043; 82570; 83735; 85027

== ENCOUNTER → 2019-12-17 | Outpatient (CLI) | payer MEDICARE, OTHER ==
[2019-12-17 12:40] LABS: ANION GAP 12 (5-19); BLOOD UREA NITROGEN 41 mg/dL (7-20); CALCIUM 9.4 mg/dL (8.4-10.2); CARBON DIOXIDE 21 mmol/L (22-30); CHLORIDE 105 mmol/L (98-107); GLUCOSE 134 mg/dL (75-110); POTASSIUM 3.7 mmol/L (3.6-5.0)
== END ==
LOC: OD 11:20
PROVIDERS: ATTEND Specialist
DX: E87.1 Hypo-osmolality and hyponatremia (principal); E29.1 Testicular hypofunction; D40.0 Neoplasm of uncertain behavior of prostate
CPT/HCPCS: 36415; 80048; 84402

== ENCOUNTER → 2020-02-06 | Outpatient (CLI) | payer MEDICARE, OTHER ==
[2020-02-06 12:54] VITALS: BP 198/86
--- NOTE | 2020-02-06 12:54 | ER RDC ASSESSMENT REPORT ---
Intake - In the Last 14 days Have you traveled outside [place]?: No Have you been in close contact with someone CONFIRMED: No Worked in Healthcare?: No - Symptoms Subjective Fever([place] feverish): No Chills: No Muscule Aches: No Runny Nose: No Sore Throat: No Cough (New or worsening chronic cough): No Shortness of breath: No Nausea or Vomiting: No Headache: No Abdominal Pain: No Diarrhea(3 or more loose stools in last 24 hours): No - Do you have any of the following Chronic lung disease: Asthma or emphysema or COPD: No Cystic Fibrosis: No Diabetes: Yes High Blood Pressure: Yes Cardiovascular Disease: No Chronic Kidney Disease: Yes Chronic Liver Disease: No Chronic blood disorder like Sickle Cell Disease: No Weak immune system due to disease or medication: No Neurologic condition that limits movement: No Developmental delay - Moderate to Severe: No - Objective Temperature: 98.8 F Pulse Rate: 92 Respiratory Rate: 16 Blood Pressure: 198/86 - did not take BP meds O2 Sat by Pulse Oximetry: 96 Objective: Given above, testing performed: covid Disposition: Home; Selfcare General - General Stated Complaint: changes in taste, increased gas Mode of Arrival: Ambulatory Information source: Patient - HPI Notes: 74-year-old male presents to [facility] clinic for COVID-19 testing. Patient reports no known contact with confirmed Covid positive individual. Onset of symptoms a couple of days ago. Patient is only reporting an odd metallic taste in his mouth and increased gas. Denies any fever or chills, muscle aches, runny nose, sore throat, cough or shortness of breath, GI upset, or headache. - Related Data Allergies/Adverse Reactions: atorvastatin calcium [From Lipitor] Allergy (Verified 10/13/17 11:08) cephradine [From Velosef] Allergy (Verified 10/13/17 11:08) cerivastatin sodium [From Baycol] Allergy (Verified 10/13/17 11:08) chloramphenicol [From Chloromycetin] Allergy (Verified 10/13/17 11:08) chloramphenicol sod succ [From Chloromycetin] Allergy (Verified 10/13/17 11:08) cholera vaccine [Cholera Vaccine] Allergy (Verified 10/13/17 11:08) colestipol HCl [From Colestid] Allergy (Verified 10/13/17 11:08) doxycycline hyclate [From Vibramycin] Allergy (Verified 10/13/17 11:08) erythromycin base [Erythromycin Base] Allergy (Verified 10/13/17 11:08) ezetimibe [From Zetia] Allergy (Verified 10/13/17 11:08) fenofibrate,micronized [From Tricor] Allergy (Verified 10/13/17 11:08) lisinopril [Lisinopril] Allergy (Verified 10/13/17 11:08) nifedipine [From Adalat] Allergy (Verified 10/13/17 11:08) Penicillins Allergy (Verified 10/13/17 11:08) simvastatin [From Zocor] Allergy (Verified 10/13/17 11:08) sulfamethoxazole [From Septra] Allergy (Verified 10/13/17 11:08) terazosin [Terazosin] Allergy (Verified 10/13/17 11:08) trimethoprim [From Septra] Allergy (Verified 10/13/17 11:08) contrast IVP Dye Allergy (Uncoded 10/13/17 11:08) Past Medical History - General Information source: Patient - Social History Smoking Status: Never Smoker Family History: Hypertension - Past Medical History Cardiac Medical History: Reports: Hx Hypercholesterolemia, Hx Hypertension Denies: Hx Atrial Fibrillation, Hx Congestive Heart Failure, Hx Coronary Artery Disease, Hx DVT, Hx Heart Attack, Hx Peripheral Vascular Disease, Hx Pulmonary Embolism, Hx Heart Murmur Pulmonary Medical History: Reports: None EENT Medical History: Reports: None Neurological Medical History: Reports: None Endocrine Medical History: Reports: Hx Diabetes Mellitus Type 2 - Prediabetes, Hx Hypothyroidism Renal/ Medical History: Reports: Hx Renal Insufficiency. Denies: Hx Peritoneal Dialysis Malignancy Medical History: Reports None GI Medical History: Reports: Hx Gastroesophageal Reflux Disease Musculoskeletal Medical History: Reports Hx Arthritis - Osteoarthritis Skin Medical History: Reports None Psychiatric Medical History: Reports: None Denies: Hx Depression Traumatic Medical History: Reports: None Infectious Medical History: Reports: None Past Surgical History: Reports: Hx Genitourinary Surgery - bladder reconstruction, Hx Orthopedic Surgery Physical Exam - General General appearance: Appears well, Alert In distress: None Notes: PHYSICAL EXAMINATION: GENERAL: Well-appearing and in no acute distress. HEAD: Atraumatic, normocephalic. EYES: sclera anicteric, conjunctiva are normal. ENT: nares patent. Moist mucous membranes. NECK: Normal range of motion, supple without lymphadenopathy. LUNGS: No increased work of breathing. Lung sounds CTAB and equal. No wheezes rales or rhonchi. HEART: Regular rate and rhythm without murmurs. ABDOMEN: Soft, nontender, normal bowel sounds, no guarding. EXTREMITIES: Normal range of motion, no pitting edema. No cyanosis. NEUROLOGICAL: A&O x 3. Normal speech. PSYCH: Normal mood, normal affect. SKIN: Warm, Dry, normal turgor, no rashes or lesions noted Patient Education/Counseling Counseling/Education: Patient presents with symptoms associated with possible Covid 19 infection. Patient does not have emergency worrying symptoms such as difficulty breathing, shortness of breath, chest pain, pressure, confusion or cyanosis. Patient appears suitable for discharge as vital signs are stable and patient is nontoxic in appearance. Good return precautions have been discussed with patient, patient verbalized understanding and is agreeable with discharge plan of care at this time. Guidance for worsening S/SX: As a person under investigation for Covid 19, the [place] department of Health and Human Services, division of public health advises you to adhere to the following guidance until your test results are reported to you. If your test result is positive, you will receive additional information from your provider and your local health department at that time. Remain at home until you are cleared by the health provider or public health authorities. Keep a log of visitors to your home, notify any visitors to your home of your isolation status. If you plan to move to a new address or leave the pending sale to [facility], notify the local health department in your [facility]. Call your doctor or seek care if you have an urgent medical need. Before seeking medical care, call ahead to get instructions from the provider before arriving at the medical office clinic or hospital. Notify them that you are being tested for the virus that causes Covid 19 so that arrangements can be made, as necessary, to prevent transmission to others in the healthcare setting. Next, notify the local health department in your county. If a medical emergency arises and you need to call 911, inform the first responders that you are being tested for the virus that causes Covid 19. Next, notify the local health department in your county. RDC Discharge - Discharge Clinical Impression: Encounter for screening laboratory testing for COVID-19 virus Condition: Good Disposition: Home; Selfcare
== END ==
LOC: RDC 11:26
PROVIDERS: ATTEND Registered Nurse
DX: Z20.828 Contact with and (suspected) exposure to other viral communicable diseases (principal); I12.9 Hypertensive chronic kidney disease with stage 1 through stage 4 chronic kidney disease, or unspecified chronic kidney disease; N18.9 Chronic kidney disease, unspecified; E11.22 Type 2 diabetes mellitus with diabetic chronic kidney disease; R43.8 Other disturbances of smell and taste; R14.0 Abdominal distension (gaseous); Z88.0 Allergy status to penicillin; Z88.1 Allergy status to other antibiotic agents; Z88.3 Allergy status to other anti-infective agents; Z88.7 Allergy status to serum and vaccine; Z88.8 Allergy status to other drugs, medicaments and biological substances; Z91.041 Radiographic dye allergy status
CPT/HCPCS: U0003; C9803; 87635; 99211